=== PATIENT | male | born 1955 | race Two or more races ===

== ENCOUNTER 2024-09-02 11:04 | Inpatient (IN) ==
--- NOTE | 2024-09-02 11:18 | Emergency Department Note ---
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 He admits to cough and fevers off and on for the past 3 weeks. Has gotten worse over the past couple days. He admits to shortness of breath. He was unhooking a trailer and got chest pain but he notes its only present when he is coughing. Denies any belly pain, nausea, vomiting or diarrhea. No dysuria, urgency, or frequency. No other exacerbating or remitting factors. ADDITIONAL HISTORY OBTAINED: Per HPI Chronic Medical/Social Conditions Affecting Care: Per HPI PAST MEDICAL HISTORY:See Below PAST SURGICAL HISTORY:See Below FAMILY HISTORY:See Below SOCIAL HISTORY:See Below HOME MEDICATIONS:See Below ALLERGIES:See Below VITALS:See Below PHYSICAL EXAMINATION: GENERAL: Sitting up in bed, alert, with a productive cough EYE EXAM: normal conjunctiva. PERRL and EOM's grossly intact. OROPHARYNX: no exudate, no erythema, lips, buccal mucosa, and tongue normal and mucous membranes are moist NECK: supple, no nuchal rigidity, no adenopathy, non-tender LUNGS: Clear to auscultation. Normal chest wall mechanics HEART: no murmurs, S1 normal and S2 normal ABDOMEN: abdomen soft, non-tender, normo-active bowel sounds, no masses, no rebound or guarding. UPPER EXTREMITIES: upper extremities are grossly normal. LOWER EXTREMITIES: No pitting edema. NEURO EXAM: Normal sensorium-oriented person place and time, cranial nerves II- XII grossly intact, normal speech, no gross weakness of arms, no gross weakness of legs. MEDICAL DECISION MAKING: Patient is a 69-year-old male who presents to the ER for the above-stated complaint. IV was established and blood work was obtained. Labs show leukocytosis of 12.9 thousand. No significant anemia. INR unremarkable. BMP with mild hyponatremia at 134. LFTs bilirubin is unremarkable. Troponin was elevated at 130. Pro-Dave was normal. Viral panel was negative. Chest x-ray suggestive of pneumonia. Patient was given IV fluids. He was given oral Tylenol. Patient was given Rocephin and azithromycin. Patient received Cardizem prior to arrival and rate was fairly controlled while in the ER. Discussed with the case with the hospitalist for further evaluation management treatment. Consults/Care Managements Discussions: Per [facility] Triage Nursing notes reviewed. Limited review of prior medical records performed Vital Signs: reviewed and remarkable for no significant abnormalities Differential diagnosis: Differential diagnosis: Etiologies such as viral syndrome, otitis, pharyngitis, pneumonia, influenza, meningitis, urinary tract infection, sepsis, bacteremia, as well as others were entertained. ER treatment provided: See below Diagnostics interpreted by me include EKG and cardiac monitoring as listed below: -Cardiac Monitoring: An order was placed for continuous cardiac monitoring. The monitor shows a rate of 110 with atrial flutter rhythm. -ECG: Atrial flutter rate of 114 Left axis No PVCs QTc [address] wave changes -Laboratory studies:Interpreted by me as stated above in MDM and shown below. Imaging studies: Xrays: As interpreted by me: Portable AP upright 1 view of the chest shows bilateral lower lobe opacities CTs show: None Procedures: None Critical Care: None Past Med/Surg History Problem List (Updated 09/02/24 @ 17:20 by Martin Haddad DO) Leukocytosis (Acute) Pneumonia (Acute) Sepsis (Acute) Atrial flutter by electrocardiogram (Acute) CAP (community acquired pneumonia) NSTEMI, initial episode of care Rheumatoid arthritis in remission On methotrexate therapy BPH (benign prostatic hyperplasia) Social History Smoking Status: Former smoker Hx Alcohol Use: No Hx Substance Use: No Beliefs That Will Affect Care: None Current Living Situation: Family Other Information That Helps Us Care for You: No Feels Safe at Home: Yes Safety Concerns: Feels Safe At This Time Assistive Devices: Glasses Allergies Allergies Allergy/AdvReac Type Severity Reaction Status Date / Time No Known Allergies Allergy Verified 09/02/24 14:40 Home Meds Home Medications Medication Instructions Recorded Confirmed atorvastatin 40 mg tablet 40 mg PO PM 09/02/24 09/02/24 folic acid 1 mg tablet 1 mg PO DAILY 09/02/24 09/02/24 methotrexate sodium 2.5 mg tablet 15 mg PO WK 09/02/24 09/02/24 Results & Data (ED) Vital Signs Vital Signs - 24 hr 09/02/24 11:14 09/02/24 11:20 09/02/24 11:21 Temperature 39.6 C H 39.6 C H Temperature Source Oral Oral Pulse Rate 110 H 115 H Pulse Rate [Apical] 115 H Pulse Rhythm Regular Regular Pulse Strength Normal Respiratory Rate 20 20 20 Respiratory Effort / Characteristics Non-Labored Spontaneous Non-Labored Spontaneous Respiratory Depth Normal Normal Respiratory Pattern Regular Blood Pressure 121/78 Blood Pressure [Left Arm] 121/78 Blood Pressure Mean 92 Blood Pressure Mean [Left Arm] 92 Pulse Oximetry 92 93 93 Oxygen Delivery Method Room Air Room Air Room Air Sepsis Recent Fever Within 48 Hours Yes Sepsis New/Unexplained Change in Mental Status No Sepsis Action Taken by Nursing Physician Notified 09/02/24 11:30 09/02/24 12:23 Temperature Temperature Source Pulse Rate 116 H Pulse Rate [Apical] Pulse Rhythm Pulse Strength Respiratory Rate Respiratory Effort / Characteristics Respiratory Depth Respiratory Pattern Blood Pressure Blood Pressure [Left Arm] Blood Pressure Mean Blood Pressure Mean [Left Arm] Pulse Oximetry Oxygen Delivery Method Room Air Sepsis Recent Fever Within 48 Hours Sepsis New/Unexplained Change in Mental Status Sepsis Action Taken by Nursing Laboratory Data 09/02/24 11:15 09/02/24 11:51 Lab Results 09/02/24 09/02/24 09/02/24 Range/Units 11:15 11:30 11:51 WBC 12.99 H (4.8-10.8) K/ul RBC 4.82 (4.70-6.10) M/uL Hgb 15.2 (14.0-18.0) g/dl Hct 43.1 (42.0-52.0) % MCV 89.4 (80.0-100.0) fL MCH 31.5 (25.0-34.0) pg MCHC 35.3 (32.0-36.0) g/dL RDW Std Deviation 43.8 (36.4-46.3) fL RDW Coeff of Leeanne 13.3 (11.5-14.5) % Plt Count 236 (130-400) K/uL MPV 9.7 (9.4-12.4) fL Immature Gran % (Auto) 0.6 % Neut % (Auto) 78.8 % Lymph % (Auto) 10.2 % [place] % (Auto) 10.1 % Eos % (Auto) 0.0 % Baso % (Auto) 0.3 % Neut # (Auto) 10.24 H (1.40-6.50) K/uL Lymph # (Auto) 1.32 (1.20-3.40) K/uL [place] # (Auto) 1.31 H (0.11-0.59) K/uL Eos # (Auto) 0.00 (0.00-0.50) K/uL Baso # (Auto) 0.04 (0.00-0.20) K/uL Immature Gran # (Auto) 0.08 (0.01-0.20) K/uL PT 11.7 (9.0-12.0) Seconds INR 1.1 (0.9-1.1) APTT 28 (21-31) Seconds PTT Ratio 1.0 Sodium 134 L (136-145) mmol/L Potassium TNP 3.7 Chloride 102 (98-107) mmol/L Carbon Dioxide 24 (21-32) mmol/L Anion Gap 8 (3-11) BUN 11 (6-23) mg/dl Creatinine 0.97 (0.6-1.4) mg/dl Est Cr Clr Drug Dosing 87.6 ml/min eGFR 85.03 BUN/Creatinine Ratio 11.3 (10-20) Glucose 135 H (70-99(Fasting)) mg/dl Estimat Average Glucose 114 mg/dl Hemoglobin A1c 5.6 (4.5-5.6) % Lactate 1.6 (0.4-2.0) mmol/L Calcium 9.0 (8.6-10.3) mg/dl Total Bilirubin 1.2 H (0.2-1.0) mg/dl AST TNP 17 ALT 21 (7-52) U/L Alkaline Phosphatase 68 (34-104) U/L Troponin I High Sens 128.9 H* (0-20) pg/ml Total Protein 7.3 (6.0-8.3) gm/dl Albumin 4.1 (3.4-5.0) gm/dl Globulin 3.2 (2.5-4.0) gm/dl Albumin/Globulin Ratio 1.3 (0.9-2) Triglycerides 58 (0-150) mg/dl Cholesterol 107 (0-200) mg/dl LDL Cholesterol, Calc 51 mg/dl VLDL Cholesterol, Calc 12 (0-30) mg/dl HDL Cholesterol 44 mg/dl Cholesterol/HDL Ratio 2.4 (0-5) Lipase 13 (11-82) U/L Procalcitonin Cancelled 0.13 TSH 0.543 (0.300-4.500) uIu/ml Administered Medications Atorvastatin Calcium (Atorvastatin 40 Mg Tab) 40 mg PO QAM [facility] Stop: 10/02/24 13:29 Last Admin: 09/02/24 14:41 Dose: 40 mg Documented By: DELORES Heparin Sodium/Dextrose (Heparin Sodium/Dextrose) 25,000 units in 500 mls @ 31 mls/hr IV .Q16H8M [facility]; Protocol Stop: 10/02/24 14:29 Last Admin: 09/02/24 15:19 Dose: 1,550 units/hr, 31 mls/hr Documented By: DELORES Co-signed By: JEROME Diltiazem HCl 125 mg/ Dextrose 125 mls @ 5 mls/hr IV .Q24H [facility]; Protocol Stop: 10/02/24 16:44 Last Admin: 09/02/24 16:54 Dose: 5 mg/hr, 5 mls/hr Documented By: EVA Co-signed By: ZAC Metoprolol Tartrate (Metoprolol Tartrate 25 Mg Tab) 12.5 mg PO Q6 [facility] Stop: 10/02/24 17:59 Last Admin: 09/02/24 16:55 Dose: 12.5 mg Documented By: EVA Discontinued Medications Acetaminophen (Acetaminophen 325 Mg Tab) 650 mg PO NOW STA Stop: 09/02/24 11:32 Last Admin: 09/02/24 11:45 Dose: 650 mg Documented By: DELORES Aspirin (Aspirin 81 Mg Ectab) 81 mg PO NOW STA Stop: 09/02/24 13:16 Last Admin: 09/02/24 13:34 Dose: Not Given Documented By: DELORES Azithromycin (Azithromycin 250 Mg Tab) 500 mg PO NOW ONE Stop: 09/02/24 11:57 Last Admin: 09/02/24 12:26 Dose: 500 mg Documented By: DELORES Heparin Sodium (Porcine) (Heparin Sod (Porcine) 1000 Unit/Ml) 7,000 units IV NOW ONE Stop: 09/02/24 14:26 Last Admin: 09/02/24 15:19 Dose: 7,000 units Documented By: DELORES Co-signed By: JEROME Sodium Chloride (Nss) 1,000 mls @ 999 mls/hr IV .Q1H1M [facility] Stop: 09/02/24 13:15 Last Infusion: 09/02/24 13:02 Dose: Infused Documented By: Admin: 09/02/24 11:47 Dose: 999 mls/hr Documented By: Infusion: 09/02/24 11:47 Dose: Infused Documented By: Admin: 09/02/24 11:35 Dose: 999 mls/hr Documented By: DELORES Ceftriaxone Sodium (Rocephin) 2,000 mg in 50 mls @ 100 mls/hr IV NOW STA Stop: 09/02/24 12:00 Last Infusion: 09/02/24 12:10 Dose: Infused Documented By: Admin: 09/02/24 11:46 Dose: 100 mls/hr Documented By: DELORES Metoprolol Tartrate (Metoprolol Tartrate 1 Mg/Ml Vial) 5 mg IV NOW STA Stop: 09/02/24 13:12 Last Admin: 09/02/24 13:24 Dose: 5 mg Documented By: DELORES Potassium Chloride (Potassium Chloride Crtab 20 Meq Tabcr) 20 meq PO NOW STA Stop: 09/02/24 16:45 Last Admin: 09/02/24 16:54 Dose: 20 meq Documented By: [facility] Imaging Data Radiologist's Impression: Chest X-Ray 09/02/24 11:14 XR chest 1V portable CLINICAL HISTORY: Chest pain, nonspecific. COMPARISON STUDY: No previous studies for comparison. FINDINGS: The heart is moderately enlarged. There is pulmonary vascular congestion with possible mild pulmonary edema. Mild bibasilar opacities are greater on the right. There is no pneumothorax or pleural effusion. IMPRESSION: 1. Cardiomegaly. Pulmonary vascular congestion with suspected mild pulmonary edema. 2. Mild bibasilar opacities, greater on the right. The findings could reflect an infectious process or atelectasis. Radiographic follow-up to ensure resolution is recommended. ACT 112: Negative or not required by law. Electronically signed by: Luis Daniel Enamorado M.D. 09/02/2024 11:43 AM Discharge Plan Visit Data Chief Complaint: Cardiac Assessment Stated Complaint: CARDIAC ASSESSMENT ED Provider: Haddad,Martin M Discharge Problem: Sepsis, Pneumonia, Atrial flutter by electrocardiogram, Leukocytosis Patient Disposition: Admitted As Inpatient Discharge Instructions Interventions: ED Discharge Assessment Last Done: 09/02/24 15:11 Discharge Problem: Sepsis Qualifiers: Sepsis type: sepsis due to unspecified organism Sepsis acute organ dysfunction status: unspecified Qualified Code(s): A41.9 - Sepsis, unspecified organism Pneumonia Qualifiers: Pneumonia type: due to unspecified organism Laterality: unspecified laterality Lung location: unspecified part of lung Qualified Code(s): J18.9 - Pneumonia, unspecified organism Leukocytosis Qualifiers: Leukocytosis type: unspecified Qualified Code(s): D72.829 - Elevated white blood cell count, unspecified
[2024-09-02 11:30] LABS: Basophils # (auto) 0.04 K/uL (0.00-0.20); Basophils % (auto) 0.3 %; Hematocrit (blood only) 43.1 % (42.0-52.0); Hemoglobin 15.2 g/dl (14.0-18.0); Immature Granulocytes # (auto) 0.08 K/uL (0.01-0.20); Immature Granulocytes % (auto) 0.6 %; Lymphocytes # (auto) 1.32 K/uL (1.20-3.40); Lymphocytes % (auto) 10.2 %; Mean Corpuscular Hemoglobin 31.5 pg (25.0-34.0); Mean Corpuscular Hgb Conc 35.3 g/dL (32.0-36.0); Mean Corpuscular Volume 89.4 fL (80.0-100.0); Mean Platelet Volume 9.7 fL (9.4-12.4); Monocytes # (auto) 1.31 K/uL (0.11-0.59); Monocytes % (auto) 10.1 %; Neutrophils # (auto) 10.24 K/uL (1.40-6.50); Neutrophils % (auto) 78.8 %; Platelet Count 236 K/uL (130-400); RDW Coefficient of Variation 13.3 % (11.5-14.5); RDW Standard Deviation 43.8 fL (36.4-46.3); Red Blood Count 4.82 M/uL (4.70-6.10); White Blood Count 12.99 K/ul (4.8-10.8)
[2024-09-02] MEDS: SODIUM CHLORIDE 0.9% 1,000 ML IV SCH (11:35)
[2024-09-02] MEDS: ACETAMINOPHEN 325 MG TAB PO STA (11:45)
[2024-09-02] MEDS: cefTRIAXone SODIUM 2,000 MG/50 ML BAG IV STA (11:46)
--- NOTE | 2024-09-02 11:46 | XRay Report ---
XR chest 1V portable CLINICAL HISTORY: Chest pain, nonspecific. COMPARISON STUDY: No previous studies for comparison. FINDINGS: The heart is moderately enlarged. There is pulmonary vascular congestion with possible mild pulmonary edema. Mild bibasilar opacities are greater on the right. There is no pneumothorax or pleu ral effusion. IMPRESSION: 1. Cardiomegaly. Pulmonary vascular congestion with suspected mild pulmonary edema. 2. Mild bibasilar opacities, greater on the right. The findings could reflect an infectious process o r atelectasis. Radiographic follow-up to ensure resolution is recommended. ACT 112: Negative or not required by law. Electronically signed by: Luis Daniel Enamorado M.D. 09/02/2024 11:43 AM
[2024-09-02 11:48] LABS: Alanine Aminotransferase 21 U/L (7-52); Albumin Globulin Ratio 1.3 (0.9-2); Albumin Level 4.1 gm/dl (3.4-5.0); Alkaline Phosphatase 68 U/L (34-104); Anion Gap 8 (3-11); BUN Creatinine Ratio 11.3 (10-20); Bilirubin,Total 1.2 mg/dl (0.2-1.0); Blood Urea Nitrogen 11 mg/dl (6-23); Carbon Dioxide 24 mmol/L (21-32); Chloride 102 mmol/L (98-107); Creatinine Clr Calc Pharmacy 87.6 ml/min; Globulin 3.2 gm/dl (2.5-4.0); Glucose 135 mg/dl (70-99(Fasting)); Lipase 13 U/L (11-82); Sodium 134 mmol/L (136-145); Total Protein 7.3 gm/dl (6.0-8.3)
[2024-09-02 11:55] LABS: Troponin I High Sensitivity 128.9 pg/ml (0-20)
[2024-09-02] MEDS: AZITHROMYCIN 250 MG TAB PO ONE (12:26)
[2024-09-02 12:33] LABS: Adenovirus PCR Not Detected (NotDetected); Bordetella parapertussis PCR Not Detected (NotDetected); Bordetella pertussis PCR Not Detected (NotDetected); Chlamydia pneumoniae PCR Not Detected (NotDetected); Coronavirus 229E PCR Not Detected (NotDetected); Coronavirus CoV-2 (COVID19)PCR Not Detected (NotDetected); Coronavirus HKU1 PCR Not Detected (NotDetected); Coronavirus NL63 PCR Not Detected (NotDetected); Coronavirus OC43PCR Not Detected (NotDetected); Human Metapneumovirus PCR Not Detected (NotDetected); Influenza A PCR Not Detected (NotDetected); Influenza B PCR Not Detected (NotDetected); Mycoplasma pneumoniae PCR Not Detected (NotDetected); Parainfluenza Virus 1 PCR Not Detected (NotDetected); Parainfluenza Virus 2 PCR Not Detected (NotDetected); Parainfluenza Virus 3 PCR Not Detected (NotDetected); Parainfluenza Virus 4 PCR Not Detected (NotDetected); Respiratory Syncytial VirusPCR Not Detected (NotDetected); Rhinovirus/Enterovirus PCR Not Detected (NotDetected)
[2024-09-02 12:59] LABS: Potassium 3.7 mmol/L (3.5-5.1)
[2024-09-02 13:09] LABS: Chol HDL Ratio 2.4 (0-5)
[2024-09-02 13:24] LABS: Thyroid Stimulating Hormone 0.543 uIu/ml (0.300-4.500)
[2024-09-02] MEDS: METOPROLOL TARTRATE 1 MG/ML VIAL IV STA (13:24)
--- NOTE | 2024-09-02 13:29 | History & Physical Report ---
Date of Service September 02, 2024 Assessment & Plan (1) Sepsis: Plan: -qualified by tachycardia and leukocytosis Plan: -order blood cultures x2, sputum culture -continue abx for now, low threshold to broaden if necessary -check MRSA swab (2) CAP (community acquired pneumonia): Plan: -clinical diagnosis based on fever and cough, albeit unproductive -procal is negative, viral workup is negative -differential includes HF exaccerbation (possible but does not appear severely fluid overloaded), methotrexate induced pneumonitis (possible), less likely PE (given imaging findings), sarcoidosis (possible but less likely) Plan: -check BNP, f/u next troponin, consult rheumatology given concern for methotrexate induced pneumonitis if no improvement with abx -stop fluids for now given does not appear volume down -continue azithromycin/ceftriaxone x5-7 days -check legionella antigen (3) NSTEMI, initial episode of care: Plan: -likely in setting of new onset atrial flutter, likely 3 weeks ago -not on anticoagulation, [id number] score of 3 meaning anticoagulation is indicated Plan: -start eliquis 5mg bid (4) Atrial flutter by electrocardiogram: Plan: -new onset, likely 3 weeks ago when chest pressure began -hemodynamically stable Plan: -cardiology consult, appreciate recs -check A1c, lipids, TSH for risk strat -give 5mg IV metoprolol now, start 12.5 mg q6hrs scheduled PO loppressor for rate control (5) Rheumatoid arthritis in remission: Plan: -on methotrexate -joint pain well controlled however given imaging findings and fever lower on differential but possible would be methotrexate induced pneumonitis Plan: -cessation systems outreach specialist clinical response, if not feeling better over next few days consult rheumatology for consideration of steroids and further workup -hold methotrexate for now (6) BPH (benign prostatic hyperplasia): Plan: -not taking prescribed flomax (7) On methotrexate therapy: Plan: -see above Plan Feeding/fluids: heart healthy Analgesia: none Sedation: none Thromboprophylaxis: eliquis Head up position: 30 Ulcer prophylaxis: none Glycemic control: none Spontaneous breathing trial: na Bowel care: miralax Indwelling catheter removal: none Deescalation of antibiotics: day 1 azithro/ceftriaxone Admission and Anticipated Discharge Date Anticipated date of discharge: 09/04/24 History of Present Illness Chief Complaint: cough Primary Care Provider: NO PCP 69-year-old male with no medical history at current institution, sees doctors in [place], medical history of rheumatoid arthritis hyperlipidemia and hypertension, who presents for cough and some pressure in the chest. He states the pressure in the chest began 3 weeks ago. He is a tester/lift trucker. Cough began 3 days ago. He only takes methotrexate at home along with some over the counter supplements. He states this is never happened before. 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 Endorses poor diet. Does state he has some shortness of breath, pressure in chest, but denies other symptoms. Denies tobacco use, drug use, alcohol use. Former tobacco user. Allergies Allergy/AdvReac Type Severity Reaction Status Date / Time No Known Allergies Allergy Verified 09/02/24 13:53 Home Medications Medication Instructions Recorded Confirmed Type methotrexate sodium 2.5 mg tablet mg 09/02/24 History Past Med/Surg History Problem List (Updated 09/02/24 @ 13:58 by Nilesh Coates MD) Sepsis Atrial flutter by electrocardiogram CAP (community acquired pneumonia) NSTEMI, initial episode of care Rheumatoid arthritis in remission On methotrexate therapy BPH (benign prostatic hyperplasia) Social History Smoking Status: Former smoker Feels Safe at Home: Yes Review of Systems Review of Systems: CONSTITUTIONAL: fevers, shakes EYES: Patient denies any visual symptoms. EARS, NOSE, AND THROAT: No difficulties with hearing. No symptoms of rhinitis or sore throat. CARDIOVASCULAR: chest tightness RESPIRATORY: No dyspnea on exertion, no wheezing or cough. GI: No nausea, vomiting, diarrhea, constipation, abdominal pain, hematochezia or melena. : No urinary hesitancy or dribbling. No nocturia or urinary frequency. No abnormal urethral discharge. MUSCULOSKELETAL: chronic arthralgias NEUROLOGIC: No chronic headaches, no seizures. Patient denies numbness, tingling or weakness. PSYCHIATRIC: Patient denies problems with mood disturbance. No problems with anxiety. ENDOCRINE: No excessive urination or excessive thirst. DERMATOLOGIC: Patient denies any rashes or skin changes. Physical Exam Physical Exam: Gen: A&O 3 NAD HEENT: NCAT, EOMI, not icteric. External ears normal. No rhinorrhea. Moist mucous membranes. Neck: Supple, full range of motion, no observable masses, No meningeal sign. Slightly elevated JVP Lungs: No Respiratory distress. CV: tachycardic, regular Abdomen: Soft, nondistended, No rebound tenderness. MSK: trace pitting edema in legs bilaterally Skin: No rashes, petechiae, lesions. Normal color per patient. Neuro: Normal Gait, Grossly intact. Psych: Appropriate for situation. Results & Data Results & Data Vital Signs (Past 12 Hours) Vital Signs Temp Pulse Pulse Resp BP BP Pulse Ox 09/02/24 12:23 116 H 09/02/24 11:30 09/02/24 11:21 39.6 C H 115 H 20 121/78 93 09/02/24 11:20 115 H 20 93 09/02/24 11:14 39.6 C H 110 H 20 121/78 92 O2 Del Method 09/02/24 12:23 09/02/24 11:30 Room Air 09/02/24 11:21 Room Air 09/02/24 11:20 Room Air 09/02/24 11:14 Room Air Laboratory Results Laboratory Results WBC 12.99 K/ul (4.8-10.8) H 09/02/24 11:15 RBC 4.82 M/uL (4.70-6.10) 09/02/24 11:15 Hgb 15.2 g/dl (14.0-18.0) 09/02/24 11:15 Hct 43.1 % (42.0-52.0) 09/02/24 11:15 MCV 89.4 fL (80.0-100.0) 09/02/24 11:15 MCH 31.5 pg (25.0-34.0) 09/02/24 11:15 MCHC 35.3 g/dL (32.0-36.0) 09/02/24 11:15 RDW Std Deviation 43.8 fL (36.4-46.3) 09/02/24 11:15 RDW Coeff of Leeanne 13.3 % (11.5-14.5) 09/02/24 11:15 Plt Count 236 K/uL (130-400) 09/02/24 11:15 MPV 9.7 fL (9.4-12.4) 09/02/24 11:15 Immature Gran % (Auto) 0.6 % 09/02/24 11:15 Neut % (Auto) 78.8 % 09/02/24 11:15 Lymph % (Auto) 10.2 % 09/02/24 11:15 Story % (Auto) 10.1 % 09/02/24 11:15 Eos % (Auto) 0.0 % 09/02/24 11:15 Baso % (Auto) 0.3 % 09/02/24 11:15 Neut # (Auto) 10.24 K/uL (1.40-6.50) H 09/02/24 11:15 Lymph # (Auto) 1.32 K/uL (1.20-3.40) 09/02/24 11:15 [place] # (Auto) 1.31 K/uL (0.11-0.59) H 09/02/24 11:15 Eos # (Auto) 0.00 K/uL (0.00-0.50) 09/02/24 11:15 Baso # (Auto) 0.04 K/uL (0.00-0.20) 09/02/24 11:15 Immature Gran # (Auto) 0.08 K/uL (0.01-0.20) 09/02/24 11:15 Sodium 134 mmol/L (136-145) L 09/02/24 11:15 Potassium 3.7 mmol/L (3.5-5.1) 09/02/24 11:51 Chloride 102 mmol/L (98-107) 09/02/24 11:15 Carbon Dioxide 24 mmol/L (21-32) 09/02/24 11:15 Anion Gap 8 (3-11) 09/02/24 11:15 BUN 11 mg/dl (6-23) 09/02/24 11:15 Creatinine 0.97 mg/dl (0.6-1.4) 09/02/24 11:15 Est Cr Clr Drug Dosing 87.6 ml/min 09/02/24 11:15 eGFR 85.03 09/02/24 11:15 BUN/Creatinine Ratio 11.3 (10-20) 09/02/24 11:15 Glucose 135 mg/dl (70-99(Fasting)) H 09/02/24 11:15 Lactate 1.6 mmol/L (0.4-2.0) 09/02/24 11:30 Calcium 9.0 mg/dl (8.6-10.3) 09/02/24 11:15 Total Bilirubin 1.2 mg/dl (0.2-1.0) H 09/02/24 11:15 AST 17 U/L (13-39) 09/02/24 11:51 ALT 21 U/L (7-52) 09/02/24 11:15 Alkaline Phosphatase 68 U/L (34-104) 09/02/24 11:15 Troponin I High Sens 128.9 pg/ml (0-20) H* 09/02/24 11:15 Total Protein 7.3 gm/dl (6.0-8.3) 09/02/24 11:15 Albumin 4.1 gm/dl (3.4-5.0) 09/02/24 11:15 Globulin 3.2 gm/dl (2.5-4.0) 09/02/24 11:15 Albumin/Globulin Ratio 1.3 (0.9-2) 09/02/24 11:15 Triglycerides 58 mg/dl (0-150) 09/02/24 11:51 Cholesterol 107 mg/dl (0-200) 09/02/24 11:51 LDL Cholesterol, Calc 51 mg/dl 09/02/24 11:51 VLDL Cholesterol, Calc 12 mg/dl (0-30) 09/02/24 11:51 HDL Cholesterol 44 mg/dl 09/02/24 11:51 Cholesterol/HDL Ratio 2.4 (0-5) 09/02/24 11:51 Lipase 13 U/L (11-82) 09/02/24 11:15 Procalcitonin 0.13 ng/ml (0-0.5) 09/02/24 11:51 TSH 0.543 uIu/ml (0.300-4.500) 09/02/24 11:51 Adenovirus (PCR) Not Detected (NotDetected) 09/02/24 Unknown B. pertussis DNA (PCR) Not Detected (NotDetected) 09/02/24 Unknown B.parapertussis DNA PCR Not Detected (NotDetected) 09/02/24 Unknown C. pneumoniae DNA (PCR) Not Detected (NotDetected) 09/02/24 Unknown Coronavirus OC43 (PCR) Not Detected (NotDetected) 09/02/24 Unknown Coronavirus HKU1 (PCR) Not Detected (NotDetected) 09/02/24 Unknown Coronavirus 229E (PCR) Not Detected (NotDetected) 09/02/24 Unknown SARS-CoV-2 (PCR) Not Detected (NotDetected) 09/02/24 Unknown Coronavirus NL63 (PCR) Not Detected (NotDetected) 09/02/24 Unknown Human Metapneumovir PCR Not Detected (NotDetected) 09/02/24 Unknown Influenza Type A (PCR) Not Detected (NotDetected) 09/02/24 Unknown Influenza Type B (PCR) Not Detected (NotDetected) 09/02/24 Unknown M. pneumoniae (PCR) Not Detected (NotDetected) 09/02/24 Unknown Parainfluenza 1 (PCR) Not Detected (NotDetected) 09/02/24 Unknown Parainfluenza 2 (PCR) Not Detected (NotDetected) 09/02/24 Unknown Parainfluenza 3 (PCR) Not Detected (NotDetected) 09/02/24 Unknown Parainfluenza 4 (PCR) Not Detected (NotDetected) 09/02/24 Unknown RSV (PCR) Not Detected (NotDetected) 09/02/24 Unknown Entero/Rhino (PCR) Not Detected (NotDetected) 09/02/24 Unknown Impressions Chest X-Ray 09/02/24 11:14 XR chest 1V portable CLINICAL HISTORY: Chest pain, nonspecific. COMPARISON STUDY: No previous studies for comparison. FINDINGS: The heart is moderately enlarged. There is pulmonary vascular congestion with possible mild pulmonary edema. Mild bibasilar opacities are greater on the right. There is no pneumothorax or pleural effusion. IMPRESSION: 1. Cardiomegaly. Pulmonary vascular congestion with suspected mild pulmonary edema. 2. Mild bibasilar opacities, greater on the right. The findings could reflect an infectious process or atelectasis. Radiographic follow-up to ensure resolution is recommended. ACT 112: Negative or not required by law. Electronically signed by: Luis Daniel Enamorado M.D. 09/02/2024 11:43 AM Code Status & VTE Plan Code Status full code VTE Prophylaxis Plan VTE Prophylaxis will be ordered: Yes (1) Sepsis Sepsis acute organ dysfunction status: unspecified Sepsis type: sepsis due to unspecified organism Qualified Code(s): A41.9 - Sepsis, unspecified organism (2) CAP (community acquired pneumonia) Laterality: right Lung location: lower lobe of lung Qualified Code(s): J18.9 - Pneumonia, unspecified organism (6) BPH (benign prostatic hyperplasia) Lower urinary tract symptom presence: symptoms present Lower urinary tract symptom detail: urinary frequency Qualified Code(s): N40.1 - Benign prostatic hyperplasia with lower urinary tract symptoms; R35.0 - Frequency of micturition
[2024-09-02] MEDS: ASPIRIN 81 MG ECTAB PO STA (13:34)
[2024-09-02] MEDS ORDERED: Heparin IV Adult Wt-Based Standard w/ INITIAL Bolus Protocol IV STA (14:10)
[2024-09-02 14:32] LABS: Estimated Average Glucose 114 mg/dl; Hemoglobin A1C 5.6 % (4.5-5.6)
[2024-09-02] MEDS: ATORVASTATIN 40 MG TAB PO SCH (14:41)
[2024-09-02] MEDS: HEPARIN SODIUM/DEXTROSE 25,000 UNITS/500 ML BAG IV SCH (15:19)
[2024-09-02] MEDS: HEPARIN SOD (PORCINE) 1000 UNIT/ML IV ONE (15:19)
--- NOTE | 2024-09-02 15:20 | Electrocardiogram Report ---
Test Reason : Blood Pressure : */* mmHG Vent. Rate : 114 BPM Atrial Rate : 114 BPM P-R Int : 186 ms QRS Dur : 120 ms QT Int : 292 ms P-R-T Axes : * -61 97 degrees QTcB Int : 402 ms Probable Atrial flutter Left anterior fascicular block Left ventricular hypertrophy with QRS widening ( R in aVL ) Nonspecific ST and T wave abnormality Abnormal ECG No previous ECGs available Confirmed by Isidoro Aggarwal ([id number]) on 09/02/2024 3:19:56 PM Referred By: Confirmed By: Isidoro Aggarwal
[2024-09-02 15:54] LABS: INR 1.1 (0.9-1.1); Partial Thromboplastin Time 28 Seconds (21-31); Prothrombin Time 11.7 Seconds (9.0-12.0)
[2024-09-02] MEDS ORDERED: ONDANSETRON INJ 2 MG/ML 2 ML VIAL IV PRN (15:54)
[2024-09-02] MEDS ORDERED: POLYETHYLENE (MIRALAX) 17 GM PACK PO PRN (15:54)
[2024-09-02] MEDS ORDERED: ENOXAPARIN INJ 40 MG/0.4 ML SYR SQ SCH (15:54)
[2024-09-02] MEDS ORDERED: STAT IV Infusion **Titration per Protocol STA (16:39)
--- NOTE | 2024-09-02 16:46 | Cardiology Consultation ---
Date of Consultation September 02, 2024 Assessment & Plan (1) CAP (community acquired pneumonia): (2) NSTEMI, initial episode of care: (3) Atrial flutter by electrocardiogram: Echocardiogram reveals borderline to mild diffuse left ventricular hypokinesis LVEF in the range of 45-50%. Patient is felt poorly for the last 3 weeks. Suspect he has developed underlying pneumonia and superimposed atrial fibrillation/flutter with left ventricular systolic dysfunction and heart failure that may be tachycardia induced. BNP screening minimally elevated 239 PG per mL. -Agree with initiation of beta-osvaldo, Toprol tartrate 12.5 mg p.o. every 6 hours -Add diltiazem infusion -Initially Eliquis was considered for stroke prophylaxis, but given his mild increase in troponin would recommend proceeding with unfractionated heparin until it is determined if invasive procedure indicated during this hospital s shanice. Lipid panel already obtained, LDL cholesterol 51 mg/dL. Continue current treatment with atorvastatin. History of Present Illness Attending Physician: Nilesh Coates MD History of Present Illness Alex Layton is a 69 year old male seen in cardiology consultation per the request of Dr Coates for the evaluation of atrial fibrillation / flutter, and elevation in the HS troponin level. The patient is a long distance fork truck operator. He is originally from [place], but moved to [place] 20 year ago. He describes no past history of known heart disease. He has had a 3-week history of progressive cough and associated shortness of breath. EKG on arrival to the emergency department on 09/02/2024 at 11:10 AM interpreted dependently revealed atrial fibrillation versus flutter at 114 bpm with left anterior fascicular block and nonspecific repolarization abnormalities. Past medical history is notable for rheumatoid arthritis and is on methotrexate. He also has a history of dyslipidemia and is on atorvastatin 40 mg daily. Allergies Allergy/AdvReac Type Severity Reaction Status Date / Time No Known Allergies Allergy Verified 09/02/24 14:40 Home Medications Medication Instructions Recorded Confirmed Type atorvastatin 40 mg tablet 40 mg PO PM 09/02/24 09/02/24 History folic acid 1 mg tablet 1 mg PO DAILY 09/02/24 09/02/24 History methotrexate sodium 2.5 mg tablet 15 mg PO WK 09/02/24 09/02/24 History Patient History Social History Smoking Status: Former smoker Hx Alcohol Use: No Hx Substance Use: No Beliefs That Will Affect Care: None Current Living Situation: Family Other Information That Helps Us Care for You: No Feels Safe at Home: Yes Safety Concerns: Feels Safe At This Time Assistive Devices: Glasses Review of Systems Review of Systems: All systems reviewed & are unremarkable except as noted in HPI & below Physical Exam Physical Exam: Temp Pulse Resp BP Pulse Ox O2 Del Method O2 Flow Rate 36.8 C 126 H 19 157/79 H 96 Nasal Cannula 2 09/02/24 15:54 09/02/24 16:34 09/02/24 14:40 09/02/24 15:54 09/02/24 15:54 09/02/24 15:55 09/02/24 15:55 General: no acute distress and stated age Eyes: conjunctiva are pink and non-injected, sclera clear Neck: normal jugular venous pulse, no hepatojugular reflux Chest: normal shape and normal respiratory effort Lungs: Coarse breath sounds noted throughout the mid lung dominguez Cardiac Exam: -Irregular rhythm, tachycardic, no murmurs Abdomen: abdomen soft, non-tender, no abnormal masses and no hepatosplenomegaly Musculoskeletal: no gait disturbance, no weakness Extremities: no edema and no cyanosis Neuro:awake, conversant, follows commands, no focal motor deficits Psych: appropriate affect and insight. Results & Data Vital Signs (Past 12 Hours) Vital Signs Temp Pulse Pulse Resp BP BP Pulse Ox 09/02/24 15:55 09/02/24 15:10 102 H 122/88 09/02/24 14:40 105 H 19 125/86 93 09/02/24 13:24 128 H 105/72 09/02/24 13:21 36.9 C 125 H 18 105/72 99 09/02/24 12:23 116 H 09/02/24 11:30 09/02/24 11:21 39.6 C H 115 H 20 121/78 93 09/02/24 11:20 115 H 20 93 09/02/24 11:14 39.6 C H 110 H 20 121/78 92 O2 Del Method O2 Flow Rate 09/02/24 15:55 Nasal Cannula 2 09/02/24 15:10 09/02/24 14:40 Nasal Cannula 2 09/02/24 13:24 09/02/24 13:21 Room Air 09/02/24 12:23 09/02/24 11:30 Room Air 09/02/24 11:21 Room Air 09/02/24 11:20 Room Air 09/02/24 11:14 Room Air Laboratory Results Cardiac Enzymes 09/02/24 09/02/24 09/02/24 Range/Units 11:15 11:51 13:10 AST TNP 17 Troponin I High Sens 128.9 H* 139.1 H* (0-20) pg/ml B-Natriuretic Peptide 239 H (0-100) pg/ml Coagulation 09/02/24 09/02/24 Range/Units 11:15 13:10 PT 11.7 (9.0-12.0) Seconds APTT 28 (21-31) Seconds B-Natriuretic Peptide 239 H (0-100) pg/ml Lipids 09/02/24 Range/Units 11:51 Triglycerides 58 (0-150) mg/dl Cholesterol 107 (0-200) mg/dl HDL Cholesterol 44 mg/dl Cholesterol/HDL Ratio 2.4 (0-5) CBC 09/02/24 Range/Units 11:15 WBC 12.99 H (4.8-10.8) K/ul RBC 4.82 (4.70-6.10) M/uL Hgb 15.2 (14.0-18.0) g/dl Hct 43.1 (42.0-52.0) % Plt Count 236 (130-400) K/uL Neut # (Auto) 10.24 H (1.40-6.50) K/uL Lymph # (Auto) 1.32 (1.20-3.40) K/uL [place] # (Auto) 1.31 H (0.11-0.59) K/uL Eos # (Auto) 0.00 (0.00-0.50) K/uL Baso # (Auto) 0.04 (0.00-0.20) K/uL Comprehensive Metabolic Panel 09/02/24 09/02/24 Range/Units 11:15 11:51 Sodium 134 L (136-145) mmol/L Potassium TNP 3.7 Chloride 102 (98-107) mmol/L Carbon Dioxide 24 (21-32) mmol/L BUN 11 (6-23) mg/dl Creatinine 0.97 (0.6-1.4) mg/dl Glucose 135 H (70-99(Fasting)) mg/dl Calcium 9.0 (8.6-10.3) mg/dl AST TNP 17 ALT 21 (7-52) U/L Alkaline Phosphatase 68 (34-104) U/L Total Protein 7.3 (6.0-8.3) gm/dl Albumin 4.1 (3.4-5.0) gm/dl Intake and Output 09/02/24 09/02/24 09/02/24 06:59 14:59 22:59 Intake Total 1249.8 / 1249.8 Balance 1249.8 / 1249.8 Intake: IV 1249.8 / 1249.8 Sodium Chloride 0.9% 1,000 ml @ 1199.8 / 1199.8 999 mls/hr IV .[id number] [facility] Rx#: [id number] cefTRIAXone SODIUM 2,000 mg In 50 / 50 50 ml @ 100 mls/hr IV NOW [facility] Rx#:[id number] Other: Weight 103 kg 104.9 kg Weight Measurement Method Built in [facility] Built in [facility] Patient Weight 09/03/24 06:59 Weight 104.9 kg Diagnostic Findings Portable chest x-ray performed in the emergency department revealed enlargement of the cardiac silhouette and suggestion of pulmonary vascular congestion Blood cultures x 2 obtained Transthoracic echocardiogram obtained with patient in atrial fibrillation/flutter with rapid ventricular response Mild concentric left ventricular hypertrophy is present Mild global left ventricular hypokinesis LVEF in the range of 45 -50%, mild MR, mild TR, the pulmonary systolic pressure estimated be 52 mmHg (mild to moderately elevated). No previous studies available for comparison. Viral respiratory panel negative. (1) CAP (community acquired pneumonia) Laterality: right Lung location: lower lobe of lung Qualified Code(s): J18.9 - Pneumonia, unspecified organism
[2024-09-02] MEDS: dilTIAZem HCL 125 MG in DEXTROSE 5% 100 ML IV SCH (16:54)
[2024-09-02] MEDS: POTASSIUM CHLORIDE CRTAB 20 MEQ TABCR PO STA (16:54)
[2024-09-02] MEDS: METOPROLOL TARTRATE 25 MG TAB PO SCH (16:55)
[2024-09-02] MEDS: ACETAMINOPHEN 325 MG TAB PO PRN (20:31)
[2024-09-02] MEDS ORDERED: APIXABAN 5 MG TABLET PO SCH (21:00)
[2024-09-02] MEDS: FUROSEMIDE INJ 20 MG/2 ML VIAL IV ONE (21:24)
[2024-09-02 21:53] LABS: ANTI-Xa, UFH(UnfractionatedHep 0.28 IU/ml (0.3-0.7)
--- NOTE | 2024-09-03 01:15 | CT Scan Report ---
Exam(s): CT HEAD Without Contrast EXAM: CT Head Without Intravenous Contrast CLINICAL HISTORY: AMS. TECHNIQUE: Axial computed tomography images of the head/brain without intravenous contrast. CTDI is 61 mGy and DLP is 1098 mGy-cm. Automated exposure control was utilized for the study. A dose lowering technique was utilized adhering to the principles of ALARA. COMPARISON: No relevant prior studies available. FINDINGS: Brain: No intracranial hemorrhage, mass-effect or midline shift. No abnormal extra axial fluid. No evidence of acute infarct. Mild periventricular white matter hypodensities are most consistent with chronic microangiopathy. Ventricles: Unremarkable. No ventriculomegaly. Bones/joints: Unremarkable. No acute fracture. Soft tissues: Unremarkable. Sinuses: Unremarkable as visualized. No acute sinusitis. Mastoid air cells: Unremarkable as visualized. No mastoid effusion. IMPRESSION: No acute intracranial finding. Electronically signed by: Elizabeth Garcia MD 09/03/24 01:14 AM
[2024-09-03 06:48] LABS: Basophils # (auto) 0.03 K/uL (0.00-0.20); Basophils % (auto) 0.3 %; Eosinophils # (auto) 0.01 K/uL (0.00-0.50); Eosinophils % (auto) 0.1 %; Hemoglobin 14.2 g/dl (14.0-18.0); Immature Granulocytes # (auto) 0.05 K/uL (0.01-0.20); Immature Granulocytes % (auto) 0.5 %; Lymphocytes # (auto) 1.99 K/uL (1.20-3.40); Lymphocytes % (auto) 18.3 %; Mean Corpuscular Hemoglobin 31.3 pg (25.0-34.0); Mean Corpuscular Hgb Conc 34.6 g/dL (32.0-36.0); Mean Corpuscular Volume 90.3 fL (80.0-100.0); Mean Platelet Volume 9.3 fL (9.4-12.4); Monocytes # (auto) 0.88 K/uL (0.11-0.59); Monocytes % (auto) 8.1 %; Neutrophils # (auto) 7.92 K/uL (1.40-6.50); Neutrophils % (auto) 72.7 %; Platelet Count 184 K/uL (130-400); RDW Coefficient of Variation 13.8 % (11.5-14.5); RDW Standard Deviation 45.8 fL (36.4-46.3); Red Blood Count 4.54 M/uL (4.70-6.10); White Blood Count 10.88 K/ul (4.8-10.8)
[2024-09-03 07:12] LABS: Albumin Globulin Ratio 1.2 (0.9-2); Albumin Level 3.6 gm/dl (3.4-5.0); BUN Creatinine Ratio 14.8 (10-20); Calcium 8.4 mg/dl (8.6-10.3); Creatinine Clr Calc Pharmacy 97.1 ml/min; Globulin 2.9 gm/dl (2.5-4.0); Magnesium 1.8 mg/dl (1.7-2.4); Potassium 3.7 mmol/L (3.5-5.1); Total Protein 6.5 gm/dl (6.0-8.3)
[2024-09-03 07:17] LABS: Partial Thromboplastin Ratio 1.5; Partial Thromboplastin Time 40 Seconds (21-31)
[2024-09-03] MEDS: AZITHROMYCIN 250 MG TAB PO SCH (08:41)
[2024-09-03] MEDS: ASPIRIN 81 MG ECTAB PO SCH (08:41)
[2024-09-03 09:48] LABS: ANTI-Xa, UFH(UnfractionatedHep 0.25 IU/ml (0.3-0.7)
[2024-09-03] MEDS: cefTRIAXone SODIUM 2,000 MG/50 ML BAG IV SCH (12:07)
--- NOTE | 2024-09-03 12:17 | Cardiology Progress Note ---
Date of Service September 03, 2024 Assessment & Plan (1) CAP (community acquired pneumonia): (2) NSTEMI, initial episode of care: (3) Atrial flutter by electrocardiogram: Plan: Echocardiogram reveals borderline to mild diffuse left ventricular hypokinesis LVEF in the range of 45-50%. Patient is felt poorly for the last 3 weeks. Suspect he has developed underlying pneumonia and superimposed atrial fibrillation/flutter with left ventricular systolic dysfunction and heart failure that may be tachycardia induced. BNP screening minimally elevated 239 PG per mL. -Stop IV diltiazem -Change metoprolol to succinate at 50 mg by mouth two times per day -Initially Eliquis was considered for stroke prophylaxis, but given his mild increase in troponin would recommend proceeding with unfractionated heparin until it is determined if invasive procedure indicated during this hospital stay. Lipid panel already obtained, LDL cholesterol 51 mg/dL. Continue current treatment with atorvastatin. Admission and Anticipated Discharge Date Admission Date: September 02, 2024 Subjective Patient seen in follow up. Notes ongoing generalized weakness and shortness of breath with exertion. No orthopnea. Telemetry reveals ongoing AFL at 109 bpm. Physical Exam Physical Exam: Temp Pulse Resp BP Pulse Ox O2 Del Method O2 Flow Rate 37.9 C H 102 H 18 121/72 90 Room Air 2 09/03/24 11:47 09/03/24 11:47 09/03/24 11:47 09/03/24 11:47 09/03/24 11:47 09/03/24 11:47 09/03/24 08:00 General: no acute distress and stated age Eyes: conjunctiva are pink and non-injected, sclera clear Neck: normal jugular venous pulse, no hepatojugular reflux Chest: normal shape and normal respiratory effort Lungs: Coarse breath sounds noted throughout the mid lung dominguez Cardiac Exam: -Irregular rhythm, tachycardic, no murmurs Abdomen: abdomen soft, non-tender, no abnormal masses and no hepatosplenomegaly Musculoskeletal: no gait disturbance, no weakness Extremities: no edema and no cyanosis Neuro:awake, conversant, follows commands, no focal motor deficits Psych: appropriate affect and insight. Results & Data Vital Signs (Past 12 Hours) Vital Signs Temp Pulse Pulse Resp BP Pulse Ox O2 Del Method 09/03/24 11:47 37.9 C H 102 H 18 121/72 90 Room Air 09/03/24 08:00 104 H 09/03/24 08:00 Nasal Cannula 09/03/24 07:53 37.1 C 104 H 20 94/66 L 91 Room Air 09/03/24 03:11 36.8 C 111 H 20 116/60 94 Nasal Cannula O2 Flow Rate 09/03/24 11:47 09/03/24 08:00 09/03/24 08:00 2 09/03/24 07:53 09/03/24 03:11 2 Laboratory Results Cardiac Enzymes 09/02/24 09/02/24 09/02/24 Range/Units 11:51 13:10 16:33 AST 17 (13-39) U/L Troponin I High Sens 139.1 H* 122.7 H* (0-20) pg/ml B-Natriuretic Peptide 239 H (0-100) pg/ml 09/02/24 09/03/24 Range/Units 18:33 06:28 AST 23 (13-39) U/L Troponin I High Sens 131.2 H* (0-20) pg/ml B-Natriuretic Peptide (0-100) pg/ml Coagulation 09/02/24 09/02/24 09/03/24 Range/Units 11:15 13:10 06:28 PT 11.7 (9.0-12.0) Seconds APTT 28 40 H (21-31) Seconds B-Natriuretic Peptide 239 H (0-100) pg/ml Lipids 09/02/24 Range/Units 11:51 Triglycerides 58 (0-150) mg/dl Cholesterol 107 (0-200) mg/dl HDL Cholesterol 44 mg/dl Cholesterol/HDL Ratio 2.4 (0-5) CBC 09/03/24 Range/Units 06:28 WBC 10.88 H (4.8-10.8) K/ul RBC 4.54 L (4.70-6.10) M/uL Hgb 14.2 (14.0-18.0) g/dl Hct 41.0 L (42.0-52.0) % Plt Count 184 (130-400) K/uL Neut # (Auto) 7.92 H (1.40-6.50) K/uL Lymph # (Auto) 1.99 (1.20-3.40) K/uL [place] # (Auto) 0.88 H (0.11-0.59) K/uL Eos # (Auto) 0.01 (0.00-0.50) K/uL Baso # (Auto) 0.03 (0.00-0.20) K/uL Comprehensive Metabolic Panel 09/02/24 09/03/24 Range/Units 11:51 06:28 Sodium 136 (136-145) mmol/L Potassium 3.7 3.7 (3.5-5.1) mmol/L Chloride 105 (98-107) mmol/L Carbon Dioxide 24 (21-32) mmol/L BUN 13 (6-23) mg/dl Creatinine 0.88 (0.6-1.4) mg/dl Glucose 118 H (70-99(Fasting)) mg/dl Calcium 8.4 L (8.6-10.3) mg/dl AST 17 23 (13-39) U/L ALT 26 (7-52) U/L Alkaline Phosphatase 59 (34-104) U/L Total Protein 6.5 (6.0-8.3) gm/dl Albumin 3.6 (3.4-5.0) gm/dl Intake and Output 09/02/24 09/03/24 09/03/24 22:59 06:59 14:59 Intake Total 332.00 / 2444.80 863.00 / 2444.80 29.7 / 29.7 Output Total 240 / 240 Balance 92.00 / 2204.80 863.00 / 2204.80 29.7 / 29.7 Intake: IV 212.00 / 1874.80 413.00 / 1874.80 29.7 / 29.7 Heparin Sodium/Dextrose 25,000 209.25 / 500.00 290.75 / 500.00 29.7 / 29.7 units In 500 ml @ 1,650 UNITS/ HR 33 mls/hr IV .[id number] [facility] Rx #:[id number] dilTIAZem HCL 125 mg In 2.75 / 125.00 122.25 / 125.00 Dextrose 5% 100 ml @ 10 MG/HR 10 mls/hr IV .[id number] [facility] Rx#: [id number] Oral 120 / 570 450 / 570 Output: Urine 240 / 240 Other: Weight 104.9 kg 104.2 kg Weight Measurement Method [facility] in [facility] (1) CAP (community acquired pneumonia) Laterality: right Lung location: lower lobe of lung Qualified Code(s): J18.9 - Pneumonia, unspecified organism
--- NOTE | 2024-09-03 13:02 | Hospitalist Progress Note ---
Date of Service September 03, 2024 Assessment & Plan (1) Sepsis: Plan: -qualified by tachycardia and leukocytosis secondary to community-acquired pneumonia Plan: -order blood cultures x2, sputum culture - has been getting intravenous ceftriaxone and azithromycin orally -check MRSA - negative He has been feeling little better (2) CAP (community acquired pneumonia): Plan: -clinical diagnosis based on fever and cough, albeit unproductive -procal is negative, viral workup is negative -differential includes HF exaccerbation (possible but does not appear severely fluid overloaded), methotrexate induced pneumonitis (possible), less likely PE (given imaging findings), sarcoidosis (possible but less likely) Plan: -check BNP, f/u next troponin, consult rheumatology given concern for methotrexa te induced pneumonitis if no improvement with abx -stop fluids for now given does not appear volume down -continue azithromycin/ceftriaxone x5-7 days -check legionella antigen- pending (3) NSTEMI, initial episode of care: Plan: -likely in setting of new onset atrial flutter, likely 3 weeks ago -not on anticoagulation, [id number] score of 3 meaning anticoagulation is indicated Plan: echo of the heart showed mild diffuse left ventricular hypokinesis with LVEF of 45 to 50% - troponins mildly elevated and the patient has been getting intravenous heparin until it is clear that he will not need for any intervention appreciate cardiology input and recommendation (4) Atrial flutter by electrocardiogram: Plan: -new onset, likely 3 weeks ago when chest pressure began -hemodynamically stable Plan: -cardiology consult, appreciate recs -check A1c- 5.6, lipids- noted, TSH for risk - normal at 0.543 -given 5mg IV metoprolol now, start 12.5 mg q6hrs scheduled PO loppressor for rate control - remains tachycardic and Cardizem drip has been discontinued (5) Rheumatoid arthritis in remission: Plan: -on methotrexate -joint pain well controlled however given imaging findings and fever lower on differential but possible would be methotrexate induced pneumonitis Plan: -title examiner clinical response, if not feeling better over next few days consult rheumatology for consideration of steroids and further workup -hold methotrexate for now - no acute arthritis involving any of the joint (6) BPH (benign prostatic hyperplasia): Plan: -not taking prescribed flomax (7) On methotrexate therapy: Plan: -see above Plan DVT prophylaxis -on intravenous heparin CODE STATUS full Admission and Anticipated Discharge Date Admission Date: September 02, 2024 Subjective 09/03/2024 The patient was seen and examined in telemetry unit She has been complaining of shortness of breath and weakness with cough Denies any chest pain and/or palpitation Review of Systems Review of Systems: All systems reviewed and are unremarkable except as noted below Physical Exam Physical Exam: Lying in bed without any acute distress Constitutional: well developed, well nourished, + ill appearing and + obese Eyes: PERRL, conjunctivae normal, anicteric sclerae ENMT: external ear and nose normal, oropharynx normal Neck: trachea midline, no thyromegaly Respiratory: + respiratory distress ( minimal distres s at rest) Auscultation: + diminished lung sounds and + crackles ( minimal crackles at the bases) Cardiovascular: Rate/Rhythm: regular rate, regular rhythm and + tachycardic Heart Sounds: normal S1 and normal S2; no murmur Extremities: + edema Gastrointestinal (Abdomen): Inspection/Auscultation: normal bowel sounds; abdomen not distended Percussion/Palpation: abdomen soft; abdomen nontender Musculoskeletal: No acute arthritis involving any of the joint Neurologic: normal touch/pain/proprioception and moves all extremities; no focal motor deficits Lymphatic: no cervical or axillary lymphadenopathy Results & Data Results & Data Vital Signs (Past 12 Hours) Vital Signs Temp Pulse Pulse Resp BP Pulse Ox O2 Del Method 09/03/24 11:47 37.9 C H 102 H 18 121/72 90 Room Air 09/03/24 08:00 104 H 09/03/24 08:00 Nasal Cannula 09/03/24 07:53 37.1 C 104 H 20 94/66 L 91 Room Air 09/03/24 03:11 36.8 C 111 H 20 116/60 94 Nasal Cannula O2 Flow Rate 09/03/24 11:47 09/03/24 08:00 09/03/24 08:00 2 09/03/24 07:53 09/03/24 03:11 2 Laboratory Results Short CBC 09/03/24 Range/Units 06:28 WBC 10.88 H (4.8-10.8) K/ul Hgb 14.2 (14.0-18.0) g/dl Hct 41.0 L (42.0-52.0) % Plt Count 184 (130-400) K/uL BMP 09/02/24 09/03/24 11:51 06:28 Sodium 136 Potassium 3.7 3.7 Chloride 105 Carbon Dioxide 24 BUN 13 Creatinine 0.88 Glucose 118 H Calcium 8.4 L Liver Function 09/02/24 09/03/24 Range/Units 11:51 06:28 Total Bilirubin 1.0 (0.2-1.0) mg/dl AST 17 23 (13-39) U/L ALT 26 (7-52) U/L Alkaline Phosphatase 59 (34-104) U/L Albumin 3.6 (3.4-5.0) gm/dl Medications Administered Current Inpatient Medications Acetaminophen (Acetaminophen 325 Mg Tab) 650 mg PO Q4H PRN PRN Reason: Pain or Fever Stop: 10/02/24 15:53 Last Admin: 09/02/24 20:31 Dose: 650 mg Aspirin (Aspirin 81 Mg Ectab) [address] [facility] Stop: 10/03/24 08:59 Last Admin: 09/03/24 08:41 Dose: 81 mg Atorvastatin Calcium (Atorvastatin 40 Mg Tab) [address] [facility] Stop: 10/02/24 13:29 Last Admin: 09/03/24 08:41 Dose: 40 mg Azithromycin (Azithromycin 250 Mg Tab) [address] [facility] Stop: 09/08/24 08:59 Last Admin: 09/03/24 08:41 Dose: 500 mg Heparin Sodium/Dextrose (Heparin Sodium/Dextrose) 25,000 units in 500 mls @ 35 mls/hr IV .[id number] [facility]; Protocol Stop: 10/02/24 14:29 Last Admin: 09/03/24 10:39 Dose: Not Given Ceftriaxone Sodium (Rocephin) 2,000 mg in 50 mls @ 100 mls/hr IV Q24H [facility]; Protocol Stop: 09/08/24 11:59 Last Infusion: 09/03/24 12:37 Dose: Infused Metoprolol Succinate (Metoprolol Succ 50mg Ext Rel Tab) 50 mg PO BID [facility] Stop: 10/03/24 20:59 Ondansetron HCl (Ondansetron Inj 2 Mg/Ml 2 Ml Vial) 4 mg IV Q6H PRN PRN Reason: Nausea Stop: 10/02/24 15:53 Polyethylene Glycol (Polyethylene (Miralax) 17 Gm Pack) 17 gm PO DAILY PRN PRN Reason: Constipation Stop: 10/02/24 15:53 (1) Sepsis Sepsis type: sepsis due to unspecified organism Sepsis acute organ dysfunction status: unspecified Qualified Code(s): A41.9 - Sepsis, unspecified organism (2) CAP (community acquired pneumonia) Laterality: right Lung location: lower lobe of lung Qualified Code(s): J18.9 - Pneumonia, unspecified organism (6) BPH (benign prostatic hyperplasia) Lower urinary tract symptom presence: symptoms present Lower urinary tract symptom detail: urinary frequency Qualified Code(s): N40.1 - Benign prostatic hyperplasia with lower urinary tract symptoms; R35.0 - Frequency of micturition
[2024-09-03 17:14] LABS: ANTI-Xa, UFH(UnfractionatedHep 0.38 IU/ml (0.3-0.7)
[2024-09-03] MEDS: METOPROLOL SUCC 50MG EXT REL TAB PO SCH (20:02)
[2024-09-03] MEDS: METOPROLOL TARTRATE 1 MG/ML VIAL IV STA (23:52)
[2024-09-04 06:36] LABS: Basophils # (auto) 0.02 K/uL (0.00-0.20); Basophils % (auto) 0.2 %; Eosinophils # (auto) 0.06 K/uL (0.00-0.50); Eosinophils % (auto) 0.7 %; Hematocrit (blood only) 41.2 % (42.0-52.0); Hemoglobin 13.8 g/dl (14.0-18.0); Immature Granulocytes # (auto) 0.03 K/uL (0.01-0.20); Immature Granulocytes % (auto) 0.4 %; Lymphocytes # (auto) 2.15 K/uL (1.20-3.40); Lymphocytes % (auto) 26.1 %; Mean Corpuscular Hemoglobin 30.5 pg (25.0-34.0); Mean Corpuscular Hgb Conc 33.5 g/dL (32.0-36.0); Mean Corpuscular Volume 90.9 fL (80.0-100.0); Mean Platelet Volume 9.5 fL (9.4-12.4); Monocytes # (auto) 0.94 K/uL (0.11-0.59); Monocytes % (auto) 11.4 %; Neutrophils # (auto) 5.04 K/uL (1.40-6.50); Neutrophils % (auto) 61.2 %; Platelet Count 197 K/uL (130-400); RDW Coefficient of Variation 13.6 % (11.5-14.5); RDW Standard Deviation 45.8 fL (36.4-46.3); Red Blood Count 4.53 M/uL (4.70-6.10); White Blood Count 8.24 K/ul (4.8-10.8)
[2024-09-04 06:50] LABS: BUN Creatinine Ratio 15.5 (10-20); Calcium 8.6 mg/dl (8.6-10.3); Creatinine Clr Calc Pharmacy 101.6 ml/min; Magnesium 2.1 mg/dl (1.7-2.4); Phosphorus 2.5 mg/dl (2.5-4.9); Potassium 3.9 mmol/L (3.5-5.1)
[2024-09-04] MEDS: guaiFENesin/DEXTROM SYRUP 200MG/20MG 10ML UDC PO PRN (11:44)
--- NOTE | 2024-09-04 11:48 | Hospitalist Progress Note ---
Date of Service September 04, 2024 Assessment & Plan (1) Sepsis: Plan: -qualified by tachycardia and leukocytosis secondary to community-acquired pneumonia Plan: -order blood cultures x2, sputum culture - has been getting intravenous ceftriaxone and azithromycin orally -check MRSA - negative He has been feeling little better blood cultures have been negative and he has been feeling better Remains afebrile and white count has reverted to normal (2) CAP (community acquired pneumonia): Plan: -clinical diagnosis based on fever and cough, albeit unproductive -procal is negative, viral workup is negative -differential includes HF exaccerbation (possible but does not appear severely fluid overloaded), methotrexate induced pneumonitis (possible), less likely PE (given imaging findings), sarcoidosis (possible but less likely) Plan: -check BNP, f/u next troponin, consult rheumatology given concern for methotrexate induced pneumonitis if no improvement with abx -stop fluids for now given does not appear volume down -continue azithromycin/ceftriaxone x5-7 days -check legionella antigen- pending (3) NSTEMI, initial episode of care: Plan: -likely in setting of new onset atrial flutter, likely 3 weeks ago -not on anticoagulation, [id number] score of 3 meaning anticoagulation is indicated Plan: echo of the heart showed mild diffuse left ventricular hypokinesis with LVEF of 45 to 50% - troponins mildly elevated and the patient has been getting intravenous heparin until it is clear that he will not need for any intervention appreciate cardiology input and recommendation Denies any chest pain and/or palpitation and is still getting intravenous heparin (4) Atrial flutter by electrocardiogram: Plan: -new onset, likely 3 weeks ago when chest pressure began -hemodynamically stable Plan: -cardiology consult, appreciate recs -check A1c- 5.6, lipids- noted, TSH for risk - normal at 0.543 -given 5mg IV metoprolol now, start 12.5 mg q6hrs scheduled PO loppressor for rate control - remains tachycardic and Cardizem drip has been discontinued Continues to have tachycardia especially when ambulance and that goes up to upper 120s (5) Rheumatoid arthritis in remission: Plan: -on methotrexate -joint pain well controlled however given imaging findings and fever lower on differential but possible would be methotrexate induced pneumonitis Plan: -pathology lab technician clinical response, if not feeling better over next few days consult rheumatology for consideration of steroids and further workup -hold methotrexate for now - no acute arthritis involving any of the joint (6) BPH (benign prostatic hyperplasia): Plan: -not taking prescribed flomax (7) On methotrexate therapy: Plan: -see above Plan DVT prophylaxis -on intravenous heparin CODE STATUS full Admission and Anticipated Discharge Date Admission Date: September 02, 2024 Subjective 09/03/2024 The patient was seen and examined in telemetry unit She has been complaining of shortness of breath and weakness with cough Denies any chest pain and/or palpitation 09/04/2024 The patient was seen and examined in telemetry unit He complains today of some cough with associated pain involving bilateral lower chest wall He has had questionable blood in the sputum but I have not noticed that Denies any fever and/or chills but his heart rate is remain high especially when ambulance at around 120s Review of Systems Review of Systems: All systems reviewed and are unremarkable except as noted below Physical Exam Physical Exam: Lying in bed without any acute distress Constitutional: well developed, well nourished, + ill appearing and + obese Eyes: PERRL, conjunctivae normal, anicteric sclerae ENMT: external ear and nose normal, oropharynx normal Neck: trachea midline, no thyromegaly Respiratory: + respiratory distress ( minimal distres s at rest) Auscultation: + diminished lung sounds and + crackles ( minimal crackles at the bases) Cardiovascular: Rate/Rhythm: regular rate, regular rhythm and + tachycardic Heart Sounds: normal S1 and normal S2; no murmur Extremities: + edema Gastrointestinal (Abdomen): Inspection/Auscultation: normal bowel sounds; abdomen not distended Percussion/Palpation: abdomen soft; abdomen nontender Musculoskeletal: No acute arthritis involving any of the joint Neurologic: normal touch/pain/proprioception and moves all extremities; no focal motor deficits Lymphatic: no cervical or axillary lymphadenopathy Results & Data Results & Data Vital Signs (Past 12 Hours) Vital Signs Temp Pulse Pulse Resp BP BP Pulse Ox 09/04/24 08:01 36.6 C 126 H 18 130/82 92 09/04/24 08:00 09/04/24 08:00 93 H 09/04/24 06:52 115 H 09/04/24 04:06 37.8 C H 104 H 12 109/74 95 09/04/24 00:19 100 H 94/66 L 09/04/24 00:18 36.9 C 107 H 12 103/64 93 09/03/24 23:52 129 H O2 Del Method 09/04/24 08:01 Room Air 09/04/24 08:00 Room Air 09/04/24 08:00 09/04/24 06:52 09/04/24 04:06 Room Air 09/04/24 00:19 09/04/24 00:18 Room Air 09/03/24 23:52 Laboratory Results Short CBC 09/04/24 Range/Units 05:49 WBC 8.24 (4.8-10.8) K/ul Hgb 13.8 L (14.0-18.0) g/dl Hct 41.2 L (42.0-52.0) % Plt Count 197 (130-400) K/uL BMP 09/04/24 05:49 Sodium 138 Potassium 3.9 Chloride 105 Carbon Dioxide 29 BUN 13 Creatinine 0.84 Glucose 114 H Calcium 8.6 Medications Administered Current Inpatient Medications Acetaminophen (Acetaminophen 325 Mg Tab) 650 mg PO Q4H PRN PRN Reason: Pain or Fever Stop: 10/02/24 15:53 Last Admin: 09/03/24 18:27 Dose: 650 mg Aspirin (Aspirin 81 Mg Ectab) 81 mg PO [facility] Stop: 10/03/24 08:59 Last Admin: 09/04/24 07:19 Dose: 81 mg Atorvastatin Calcium (Atorvastatin 40 Mg Tab) 40 mg PO [facility] Stop: 10/02/24 13:29 Last Admin: 09/04/24 07:19 Dose: 40 mg Azithromycin (Azithromycin 250 Mg Tab) 500 mg PO [facility] Stop: 09/08/24 08:59 Last Admin: 09/04/24 07:19 Dose: 500 mg Guaifenesin/Dextromethorphan (Guaifenesin/Dextrom Syrup 200mg/20mg 10ml Udc) 10 ml PO Q6H PRN PRN Reason: Cough Stop: 10/04/24 08:06 Last Admin: 09/04/24 11:44 Dose: 10 ml Heparin Sodium/Dextrose (Heparin Sodium/Dextrose) 25,000 units in 500 mls @ 35 mls/hr IV .[id number] [facility]; Protocol Stop: 10/02/24 14:29 Last Admin: 09/04/24 11:18 Dose: Not Given Ceftriaxone Sodium (Rocephin) 2,000 mg in 50 mls @ 100 mls/hr IV Q24H [facility]; Protocol Stop: 09/08/24 11:59 Last Admin: 09/04/24 11:40 Dose: 100 mls/hr Metoprolol Succinate (Metoprolol Succ 50mg Ext Rel Tab) 50 mg PO BID [facility] Stop: 10/03/24 20:59 Last Admin: 09/04/24 07:20 Dose: 50 mg Ondansetron HCl (Ondansetron Inj 2 Mg/Ml 2 Ml Vial) 4 mg IV Q6H PRN PRN Reason: Nausea Stop: 10/02/24 15:53 Polyethylene Glycol (Polyethylene (Miralax) 17 Gm Pack) 17 gm PO DAILY PRN PRN Reason: Constipation Stop: 10/02/24 15:53 (1) Sepsis Sepsis type: sepsis due to unspecified organism Sepsis acute organ dysfunction status: unspecified Qualified Code(s): A41.9 - Sepsis, unspecified organism (2) CAP (community acquired pneumonia) Laterality: right Lung location: lower lobe of lung Qualified Code(s): J18.9 - Pneumonia, unspecified organism (6) BPH (benign prostatic hyperplasia) Lower urinary tract symptom presence: symptoms present Lower urinary tract symptom detail: urinary frequency Qualified Code(s): N40.1 - Benign prostatic hyperplasia with lower urinary tract symptoms; R35.0 - Frequency of micturition
--- NOTE | 2024-09-04 12:47 | Cardiology Progress Note ---
Date of Service September 04, 2024 Assessment & Plan (1) Acute heart failure with mildly reduced ejection fraction (HFmrEF, 41-49%): (2) Atrial flutter by electrocardiogram: (3) Demand ischemia: (4) CAP (community acquired pneumonia): Plan: 69 year old [place], who has lived in [place] x 20 years. 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 Echocardiogram reveals borderline to mild diffuse left ventricular hypokinesis LVEF in the range of 45-50%. Patient is felt poorly for the last 3 weeks. Suspect he has developed underlying pneumonia and superimposed atrial fibrillation/flutter with left ventricular systolic dysfunction and heart cas lure that may be tachycardia induced. BNP screening minimally elevated 239 PG per mL. Serial mild elevation in high sensitive troponin (flat trend) 128.9--> 139 -->122--> 131.2 PG per * Increase metoprolol to succinate to 75 mg twice daily * Add digoxin * furosemide 20 mg IV x1 now, KCL 20 Meq PO x 1. * Start low dose losartan 09/05 . * Legionella antigen pending * Continue heparin infusion for stroke prophylaxis pending Determination with regards to need for invasive procedures during hospital stay. Dr Julio lee , 09/05 . Admission and Anticipated Discharge Date Admission Date: September 02, 2024 Physical Exam Physical Exam: Temp Pulse Resp BP Pulse Ox O2 Del Method O2 Flow Rate 37.9 C H 102 H 18 121/72 90 Room Air 2 09/03/24 11:47 09/03/24 11:47 09/03/24 11:47 09/03/24 11:47 09/03/24 11:47 09/03/24 11:47 09/03/24 08:00 General: no acute distress and stated age Eyes: conjunctiva are pink and non-injected, sclera clear Neck: normal jugular venous pulse, no hepatojugular reflux Chest: normal shape and normal respiratory effort Lungs: Coarse breath sounds noted throughout the mid lung dominguez Cardiac Exam: -Irregular rhythm, tachycardic, no murmurs Abdomen: abdomen soft, non-tender, no abnormal masses and no hepatosplenomegaly Musculoskeletal: no gait disturbance, no weakness Extremities: no edema and no cyanosis Neuro:awake, conversant, follows commands, no focal motor deficits Psych: appropriate affect and insight. Results & Data Vital Signs (Past 12 Hours) Vital Signs Temp Pulse Pulse Resp BP Pulse Ox O2 Del Method 09/04/24 12:00 36.6 C 119 H 18 107/69 91 Room Air 09/04/24 08:01 36.6 C 126 H 18 130/82 92 Room Air 09/04/24 08:00 Room Air 09/04/24 08:00 93 H 09/04/24 06:52 115 H 09/04/24 04:06 37.8 C H 104 H 12 109/74 95 Room Air (4) CAP (community acquired pneumonia) Laterality: right Lung location: lower lobe of lung Qualified Code(s): J18.9 - Pneumonia, unspecified organism
[2024-09-04] MEDS: DIGOXIN 250 MCG in SYRINGE 9 ML IV STA (13:40)
[2024-09-04] MEDS: POTASSIUM CHLORIDE CRTAB 20 MEQ TABCR PO STA (13:43)
[2024-09-04] MEDS: FUROSEMIDE INJ 20 MG/2 ML VIAL IV ONE (13:43)
[2024-09-04] MEDS: METOPROLOL SUCC 25MG EXT REL TAB PO SCH (19:55)
[2024-09-05] MEDS: METOPROLOL TARTRATE 1 MG/ML VIAL IV STA (00:11)
[2024-09-05 07:30] LABS: BUN Creatinine Ratio 16.9 (10-20); Calcium 8.8 mg/dl (8.6-10.3); Creatinine Clr Calc Pharmacy 102.1 ml/min; Magnesium 2.1 mg/dl (1.7-2.4); Potassium 4.1 mmol/L (3.5-5.1)
[2024-09-05 08:15] LABS: ANTI-Xa, UFH(UnfractionatedHep 0.32 IU/ml (0.3-0.7)
[2024-09-05] MEDS: LOSARTAN POTASSIUM 25 MG TAB PO SCH (08:31)
--- NOTE | 2024-09-05 11:33 | Hospitalist Progress Note ---
Date of Service September 05, 2024 Assessment & Plan (1) Sepsis: Plan: -qualified by tachycardia and leukocytosis secondary to community-acquired pneumonia Plan: -order blood cultures x2, sputum culture - has been getting intravenous ceftriaxone and azithromycin orally -check MRSA - negative He has been feeling little better blood cultures have been negative and he has been feeling better Remains afebrile and white count has reverted to normal Will finish antibiotic course of 7 to 10 days with Keflex and azithromycin course will be done in the next 2 days Clinically much better and will get PT and OT eval patient (2) CAP (community acquired pneumonia): Plan: -clinical diagnosis based on fever and cough, albeit unproductive -procal is negative, viral workup is negative -differential includes HF exaccerbation (possible but does not appear severely fluid overloaded), methotrexate induced pneumonitis (possible), less likely PE (given imaging findings), sarcoidosis (possible but less likely) Plan: -check BNP, f/u next troponin, consult rheumatology given concern for methotrexate induced pneumonitis if no improvement with abx -stop fluids for now given does not appear volume down -continue azithromycin/ceftriaxone x5-7 days -check legionella antigen-no Legionella antigen today PT OT evaluation (3) NSTEMI, initial episode of care: Plan: -likely in setting of new onset atrial flutter, likely 3 weeks ago -not on anticoagulation, [id number] score of 3 meaning anticoagulation is indicated Plan: echo of the heart showed mild diffuse left ventricular hypokinesis with LVEF of 45 to 50% - troponins mildly elevated and the patient has been getting intravenous heparin until it is clear that he will not need for any intervention appreciate cardiology input and recommendation Denies any chest pain and/or palpitation and is still getting intravenous heparin -No cardiac symptoms and the heart rate seems to be controlled (4) Atrial flutter by electrocardiogram: Plan: -new onset, likely 3 weeks ago when chest pressure began -hemodynamically stable Plan: -cardiology consult, appreciate recs -check A1c- 5.6, lipids- noted, TSH for risk - normal at 0.543 -given 5mg IV metoprolol now, start 12.5 mg q6hrs scheduled PO loppressor for rate control - remains tachycardic and Cardizem drip has been discontinued Continues to have tachycardia especially when ambulance and that goes up to upper 120s -Will need oral anticoagulation on discharge (5) Rheumatoid arthritis in remission: Plan: -on methotrexate -joint pain well controlled however given imaging findings and fever lower on differential but possible would be methotrexate induced pneumonitis Plan: -tie tamper clinical response, if not feeling better over next few days consult rheumatology for consideration of steroids and further workup -hold methotrexate for now - no acute arthritis involving any of the joint No acute arthritis involving any of the joint- (6) BPH (benign prostatic hyperplasia): Plan: -not taking prescribed flomax (7) On methotrexate therapy: Plan: -see above Plan DVT prophylaxis -on intravenous heparin CODE STATUS full Admission and Anticipated Discharge Date Admission Date: September 02, 2024 Subjective 09/03/2024 The patient was seen and examined in telemetry unit She has been complaining of shortness of breath and weakness with cough Denies any chest pain and/or palpitation 09/04/2024 The patient was seen and examined in telemetry unit He complains today of some cough with associated pain involving bilateral lower chest wall He has had questionable blood in the sputum but I have not noticed that Denies any fever and/or chills but his heart rate is remain high especially when ambulance at around 120s 09/05/2024 The patient was seen and examined in telemetry unit He has been much better today Cough has decreased and no more hemoptysis Heart rate remains elevated but better than yesterday and denies any cardiac symptoms Review of Systems Review of Systems: All systems reviewed and are unremarkable except as noted below Physical Exam Physical Exam: Lying in bed without any acute distress Constitutional: well developed, well nourished, + ill appearing and + obese Eyes: PERRL, conjunctivae normal, anicteric sclerae ENMT: external ear and nose normal, oropharynx normal Neck: trachea midline, no thyromegaly Respiratory: + respiratory distress ( minimal distres s at rest) Auscultation: + diminished lung sounds and + crackles ( minimal crackles at the bases) Cardiovascular: Rate/Rhythm: regular rate, regular rhythm and + tachycardic Heart Sounds: normal S1 and normal S2; no murmur Extremities: + edema Gastrointestinal (Abdomen): Inspection/Auscultation: normal bowel sounds; abdomen not distended Percussion/Palpation: abdomen soft; abdomen nontender Musculoskeletal: No acute arthritis involving any of the joint Neurologic: normal touch/pain/proprioception and moves all extremities; no focal motor deficits Lymphatic: no cervical or axillary lymphadenopathy Results & Data Results & Data Vital Signs (Past 12 Hours) Vital Signs Temp Pulse Pulse Resp BP BP Pulse Ox 09/05/24 11:05 96 H 09/05/24 11:05 09/05/24 08:00 37.0 C 105 H 18 120/81 95 09/05/24 03:42 36.7 C 129 H 20 110/80 94 09/05/24 01:55 96 H 09/05/24 00:27 127 H 09/05/24 00:18 117 H 118/94 09/05/24 00:11 122 H 126/69 O2 Del Method 09/05/24 11:05 09/05/24 11:05 Room Air 09/05/24 08:00 Room Air 09/05/24 03:42 Room Air 09/05/24 01:55 09/05/24 00:27 09/05/24 00:18 09/05/24 00:11 Laboratory Results BMP 09/05/24 06:26 Sodium 140 Potassium 4.1 Chloride 104 Carbon Dioxide 30 BUN 14 Creatinine 0.83 Glucose 105 H Calcium 8.8 Medications Administered Current Inpatient Medications Acetaminophen (Acetaminophen 325 Mg Tab) 650 mg PO Q4H PRN PRN Reason: Pain or Fever Stop: 10/02/24 15:53 Last Admin: 09/03/24 18:27 Dose: 650 mg Aspirin (Aspirin 81 Mg Ectab) 81 mg PO [facility] Stop: 10/03/24 08:59 Last Admin: 09/05/24 08:31 Dose: 81 mg Atorvastatin Calcium (Atorvastatin 40 Mg Tab) 40 mg PO [facility] Stop: 10/02/24 13:29 Last Admin: 09/05/24 08:31 Dose: 40 mg Azithromycin (Azithromycin 250 Mg Tab) 500 mg PO [facility] Stop: 09/08/24 08:59 Last Admin: 09/05/24 08:31 Dose: 500 mg Digoxin (Digoxin 0.125 Mg Tab) 0.125 mg PO DAILY@1600 [facility] Stop: 10/05/24 15:59 Guaifenesin/Dextromethorphan (Guaifenesin/Dextrom Syrup 200mg/20mg 10ml Udc) 10 ml PO Q6H PRN PRN Reason: Cough Stop: 10/04/24 08:06 Last Admin: 09/05/24 08:30 Dose: 10 ml Heparin Sodium/Dextrose (Heparin Sodium/Dextrose) 25,000 units in 500 mls @ 35 mls/hr IV .[id number] [facility]; Protocol Stop: 10/02/24 14:29 Last Titration: 09/05/24 08:27 Dose: 1,750 units/hr, 35 mls/hr Ceftriaxone Sodium (Rocephin) 2,000 mg in 50 mls @ 100 mls/hr IV Q24H [facility]; Protocol Stop: 09/08/24 11:59 Last Infusion: 09/04/24 12:10 Dose: Infused Losartan Potassium (Losartan Potassium 25 Mg Tab) 12.5 mg PO QAM [facility] Stop: 10/05/24 08:59 Last Admin: 09/05/24 08:31 Dose: 12.5 mg Metoprolol Succinate (Metoprolol Succ 25mg Ext Rel Tab) 75 mg PO BID [facility] Stop: 10/04/24 20:59 Last Admin: 09/05/24 08:30 Dose: 75 mg Ondansetron HCl (Ondansetron Inj 2 Mg/Ml 2 Ml Vial) 4 mg IV Q6H PRN PRN Reason: Nausea Stop: 10/02/24 15:53 Polyethylene Glycol (Polyethylene (Miralax) 17 Gm Pack) 17 gm PO DAILY PRN PRN Reason: Constipation Stop: 10/02/24 15:53 (1) Sepsis Sepsis type: sepsis due to unspecified organism Sepsis acute organ dysfunction status: unspecified Qualified Code(s): A41.9 - Sepsis, unspecified organism (2) CAP (community acquired pneumonia) Laterality: right Lung location: lower lobe of lung Qualified Code(s): J18.9 - Pneumonia, unspecified organism (6) BPH (benign prostatic hyperplasia) Lower urinary tract symptom presence: symptoms present Lower urinary tract symptom detail: urinary frequency Qualified Code(s): N40.1 - Benign prostatic h yperplasia with lower urinary tract symptoms; R35.0 - Frequency of micturition
--- NOTE | 2024-09-05 12:54 | Cardiology Progress Note ---
Date of Service September 05, 2024 Assessment & Plan (1) Acute heart failure with mildly reduced ejection fraction (HFmrEF, 41-49%): (2) Atrial flutter by electrocardiogram: (3) Demand ischemia: (4) CAP (community acquired pneumonia): Plan 09/04/[address] Hyman 69 year old [place] of [place], who has lived in [place] x 20 years. 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 Echocardiogram reveals borderline to mild diffuse left ventricular hypokinesis LVEF in the range of 45-50%. Patient is felt poorly for the last 3 weeks. Suspect he has developed underlying pneumonia and superimposed atrial fibrillation/flutter with left ventricular systolic dysfunction and heart failure that may be tachycardia induced. BNP screening minimally elevated 239 PG per mL. Serial mild elevation in high sensitive troponin (flat trend) 128.9--> 139 -->122--> 131.2 PG per * Increase metoprolol to succinate to 75 mg twice daily * Add digoxin * furosemide 20 mg IV x1 now, KCL 20 Meq PO x 1. * Start low dose losartan 09/05 . * Legionella antigen pending * Continue heparin infusion for stroke prophylaxis pending Determination with regards to need for invasive procedures during hospital stay. 09/05/24: Patient remains in persistent atrial flutter RVR despite ongoing med titration (metoprolol increased to 75 mg BID and dig added yesterday) Increase metoprolol to 100 mg BID. Continue digoxin. Continue IV heparin and transition to oral Eliquis 5 mg BID prior to discharge. Once respiratory status has improved, if HR's remain elevated, may need to consider KAVITA/CV to restore NSR. Continue ASA, statin, losartan. Treatment for sepsis, CAP per hospitalist. Blood cultures remain negative. Continue antibiotics. 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 He reports friends will be coming to help drive him and his truck home. He will not be driving home. Case discussed with Dr. Kim I spent a total of 40 minutes on the date of service in preparation, delivery, and documentation of the care provided to this patient, excluding any time spent in the performance of separately billed services. Esthela Berumen PA-C Department of Cardiology, [facility] This chart was completed in part utilizing Speech Voice Recognition Software. Grammatical errors, random word insertions, pronoun errors, and incomplete sentences are an occasional consequence of this system due to software limitations, ambient noise, and hardware issues. Any formal questions or con cerns about the content, text, or information contained within the body of this dictation should be directly addressed to the provider for clarification. Admission and Anticipated Discharge Date Admission Date: September 02, 2024 Supervising Physician Co-Signing Physician Notes I have personally performed a history and physical examination on the patient. I have reviewed the advance practitioner's documentation, and I agree with, and take responsibility for the plan of care. 69-year-old male admitted with community-acquired pneumonia, atrial flutter with rapid ventricular response, mildly elevated troponin secondary to demand ischemia, and mild LV systolic dysfunction with heart failure. Clinically improved although heart rates remain elevated. Agree with titration of Toprol- XL to 100 mg twice daily. Continue digoxin and anticoagulation. N.p.o. except medications after midnight to consider transesophageal echo guided cardioversion in a.m. 09/06/2024. I spent a total of 30 minutes on the date of service in preparation, delivery, and documentation of the care provided to this patient, excluding any time spent in the performance of separately billed services. Sung Kim DO, [facility] Subjective Patient resting in bed feeling ok. Ongoing cough and SOB reported. feels his "heart pounding" intermittently or with exertion. Remains in atrial flutter with elevated rates despite digoxin and metoprolol. Review of Systems Review of Systems: All systems reviewed & are unremarkable except as noted in HPI & below Physical Exam Physical Exam: General: no acute distress and stated age Eyes: conjunctiva are pink and non-injected, sclera clear Neck: normal jugular venous pulse, no hepatojugular reflux Chest: normal shape and normal respiratory effort Lungs: Coarse breath sounds noted throughout the mid lung dominguez Cardiac Exam: -Irregular rhythm, tachycardic, no murmurs Abdomen: abdomen soft, non-tender, no abnormal masses and no hepatosplenomegaly Musculoskeletal: no gait disturbance, no weakness Extremities: no edema and no cyanosis Neuro:awake, conversant, follows commands, no focal motor deficits Psych: appropriate affect and insight. Results & Data Vital Signs (Past 12 Hours) Vital Signs Temp Pulse Pulse Resp BP Pulse Ox O2 Del Method 09/05/24 11:46 36.7 C 128 H 18 106/79 97 Room Air 09/05/24 11:05 96 H 09/05/24 11:05 Room Air 09/05/24 08:00 37.0 C 105 H 18 120/81 95 Room Air 09/05/24 03:42 36.7 C 129 H 20 110/80 94 Room Air 09/05/24 01:55 96 H Laboratory Results Comprehensive Metabolic Panel 09/05/24 Range/Units 06:26 Sodium 140 (136-145) mmol/L Potassium 4.1 (3.5-5.1) mmol/L Chloride 104 (98-107) mmol/L Carbon Dioxide 30 (21-32) mmol/L BUN 14 (6-23) mg/dl Creatinine 0.83 (0.6-1.4) mg/dl Glucose 105 H (70-99(Fasting)) mg/dl Calcium 8.8 (8.6-10.3) mg/dl Intake and Output 09/04/24 09/05/24 09/05/24 22:59 06:59 14:59 Intake Total 420.917 / 2230.000 529.083 / 2230.000 176 / 176 Output Total Balance 419.917 / 2229.000 529.083 / 2229.000 176 / 176 Intake: IV 170.917 / 1050.000 329.083 / 1050.000 176 / 176 Heparin Sodium/Dextrose 25,000 170.917 / 1000.000 329.083 / 1000.000 126 / 126 units In 500 ml @ 1,750 UNITS/ HR 35 mls/hr IV .[id number] [facility] Rx #:[id number] cefTRIAXone SODIUM 2,000 mg In 50 / 50 50 ml @ 100 mls/hr IV Q24H [facility] Rx#:[id number] Oral 250 / 1180 200 / 1180 Output: # Bowel Movements Other: # Unmeasured Voids 2 2 Weight 102.3 kg Weight Measurement Method Built in [facility] Diagnostic Findings Telemetry reviewed: Persistent atrial flutter with RVR. HR ranging 100-120's. Medications Administered Current Inpatient Medications Acetaminophen (Acetaminophen 325 Mg Tab) 650 mg PO Q4H PRN PRN Reason: Pain or Fever Stop: 10/02/24 15:53 Last Admin: 09/03/24 18:27 Dose: 650 mg Aspirin (Aspirin 81 Mg Ectab) 81 mg PO QAM [facility] Stop: 10/03/24 08:59 Last Admin: 09/05/24 08:31 Dose: 81 mg Atorvastatin Calcium (Atorvastatin 40 Mg Tab) 40 mg PO [facility] Stop: 10/02/24 13:29 Last Admin: 09/05/24 08:31 Dose: 40 mg Azithromycin (Azithromycin 250 Mg Tab) 500 mg PO [facility] Stop: 09/08/24 08:59 Last Admin: 09/05/24 08:31 Dose: 500 mg Digoxin (Digoxin 0.125 Mg Tab) 0.125 mg PO DAILY@1600 [facility] Stop: 10/05/24 15:59 Guaifenesin/Dextromethorphan (Guaifenesin/Dextrom Syrup 200mg/20mg 10ml Udc) 10 ml PO Q6H PRN PRN Reason: Cough Stop: 10/04/24 08:06 Last Admin: 09/05/24 08:30 Dose: 10 ml Heparin Sodium/Dextrose (Heparin Sodium/Dextrose) 25,000 units in 500 mls @ 35 mls/hr IV .[id number] [facility]; Protocol Stop: 10/02/24 14:29 Last Titration: 09/05/24 08:27 Dose: 1,750 units/hr, 35 mls/hr Ceftriaxone Sodium (Rocephin) 2,000 mg in 50 mls @ 100 mls/hr IV Q24H [facility]; Protocol Stop: 09/08/24 11:59 Last Infusion: 09/05/24 12:01 Dose: Infused Losartan Potassium (Losartan Potassium 25 Mg Tab) 12.5 mg PO [facility] Stop: 10/05/24 08:59 Last Admin: 09/05/24 08:31 Dose: 12.5 mg Metoprolol Succinate (Metoprolol Succ 25mg Ext Rel Tab) 75 mg PO BID [facility] Stop: 10/04/24 20:59 Last Admin: 09/05/24 08:30 Dose: 75 mg Ondansetron HCl (Ondansetron Inj 2 Mg/Ml 2 Ml Vial) 4 mg IV Q6H PRN PRN Reason: Nausea Stop: 10/02/24 15:53 Polyethylene Glycol (Polyethylene (Miralax) 17 Gm Pack) 17 gm PO DAILY PRN PRN Reason: Constipation Stop: 10/02/24 15:53 (4) CAP (community acquired pneumonia) Laterality: right Lung location: lower lobe of lung Qualified Code(s): J18.9 - Pneumonia, unspecified organism
[2024-09-05] MEDS: METOPROLOL SUCC 25MG EXT REL TAB PO ONE (15:03)
[2024-09-05] MEDS: DIGOXIN 0.125 MG TAB PO SCH (15:03)
[2024-09-05] MEDS ORDERED: METOPROLOL SUCC 50MG EXT REL TAB PO SCH (21:00)
--- NOTE | 2024-09-06 06:38 | Electrocardiogram Report ---
Test Reason : Blood Pressure : */* mmHG Vent. Rate : 109 BPM Atrial Rate : 256 BPM P-R Int : * ms QRS Dur : 126 ms QT Int : 316 ms P-R-T Axes : -75 -65 62 degrees QTcB Int : 425 ms Atrial flutter with variable A-V block Right bundle branch block Left anterior fascicular block Bifascicular block Abnormal ECG When compared with ECG of 02-Sep-2024 11:10, No significant change Confirmed by Ghulam Fermin ([id number] on 09/06/2024 6:38:10 AM Referred By: REFERRED SELF Confirmed By: Ghulam Fermin
[2024-09-06 06:41] LABS: ANTI-Xa, UFH(UnfractionatedHep 0.38 IU/ml (0.3-0.7)
--- NOTE | 2024-09-06 12:33 | Anesthesiology Consultation ---
Date of Service September 06, 2024 Assessment & Plan (1) Encounter for pre-operative examination: Chart Review Chart Review: Acceptable Risk for Surgery and Patient NOT seen in Pre Admission Testing Consults Requested none History Surgery Operation Date: 09/06/24 13:00 Proposed Procedures p Cardioversion w/Anesthesia Sedation - Sung Kim DO p Transesophageal Echo w/Anesthesia - Sung Kim DO Height/Weight Height: 5 ft 10 in Weight: 98.5 kg Allergies Allergy/AdvReac Type Severity Reaction Status Date / Time No Known Allergies Allergy Verified 09/02/24 14:40 Medications Home Medications Medication Instructions Recorded Confirmed Last Taken atorvastatin 40 mg tablet 40 mg PO PM 09/02/24 09/02/24 Unknown folic acid 1 mg tablet 1 mg PO DAILY 09/02/24 09/02/24 Unknown methotrexate sodium 2.5 mg tablet 15 mg PO WK 09/02/24 09/02/24 Unknown Active Medications Generic Name Dose Route Start Last Admin Trade Name Freq PRN Reason Stop Dose Admin Acetaminophen 650 mg 09/02/24 15:54 09/03/24 18:27 Acetaminophen 325 Mg Tab PO 10/02/24 15:53 650 mg Q4H PRN Administration Pain or Fever Aspirin 81 mg 09/03/24 09:00 09/06/24 07:53 Aspirin 81 Mg Ectab PO 10/03/24 08:59 81 mg QAM ANTHONY Administration Atorvastatin Calcium 40 mg 09/02/24 13:30 09/06/24 07:53 Atorvastatin 40 Mg Tab PO 10/02/24 13:29 40 mg QAM ANTHONY Administration Azithromycin 500 mg 09/03/24 09:00 09/06/24 07:52 Azithromycin 250 Mg Tab PO 09/08/24 08:59 500 mg QAM ANTHONY Administration Digoxin 0.125 mg 09/05/24 16:00 09/05/24 15:03 Digoxin 0.125 Mg Tab PO 10/05/24 15:59 0.125 mg DAILY@1600 ANTHONY Administration Guaifenesin/Dextromethorphan 10 ml 09/04/24 08:07 09/05/24 08:30 Guaifenesin/Dextrom Syrup 200mg/20mg 10ml Udc PO 10/04/24 08:06 10 ml Q6H PRN Administration Cough Heparin Sodium/Dextrose 25,000 units in 500 mls @ 35 mls/hr 09/02/24 14:30 09/06/24 11:30 Heparin Sodium/Dextrose IV 10/02/24 14:29 1,750 units/hr .[id number] ANTHONY 35 mls/hr Administration Protocol 1,750 UNITS/HR Ceftriaxone Sodium 2,000 mg in 50 mls @ 100 mls/hr 09/03/24 12:00 09/06/24 12:00 Rocephin IV 09/08/24 11:59 Infused Q24H ANTHONY Infusion Protocol Losartan Potassium 12.5 mg 09/05/24 09:00 09/06/24 07:53 Losartan Potassium 25 Mg Tab PO 10/05/24 08:59 12.5 mg QAM ANTHONY Administration Social History Smoking Status: Former smoker Hx Alcohol Use: No Hx Substance Use: No Physical Exam Vital Signs Last Vital Signs Temp 98.4 F 09/06/24 08:12 Pulse 70 09/06/24 08:39 Resp 19 09/06/24 08:12 BP 99/86 L 09/06/24 08:12 Pulse Ox 95 09/06/24 08:12 O2 Del Method Room Air 09/06/24 08:39 O2 Flow Rate 2 09/03/24 08:00 Testing Laboratory Results 09/04/24 05:49 09/05/24 06:26 PT 11.7 Seconds (9.0-12.0) 09/02/24 11:15 INR 1.1 (0.9-1.1) 09/02/24 11:15 APTT 40 Seconds (21-31) H 09/03/24 06:28 Hemoglobin A1c 5.6 % (4.5-5.6) 09/02/24 11:15 09/02/24 11:51 Aerobic Blood Culture - Preliminary Blood No growth in Aerobic bottle after 48 hours. Anaerobic Blood Culture - Preliminary No growth in Anaerobic bottle after 48 hours. 09/02/24 11:30 Aerobic Blood Culture - Preliminary Blood No growth in Aerobic bottle after 48 hours. Anaerobic Blood Culture - Preliminary No growth in Anaerobic bottle after 48 hours. Electrocardiogram Date: 09/05/24 atrial flutter with variable AV block RBBB LAFB Echocardiogram Date: 09/05/24 EF: 45-50% RWMA: + hypokinetic (mild global) PASP 52 mmHg
--- NOTE | 2024-09-06 12:48 | Cardiology Progress Note ---
Date of Service September 06, 2024 Assessment & Plan (1) Acute heart failure with mildly reduced ejection fraction (HFmrEF, 41-49%): (2) Atrial flutter by electrocardiogram: (3) Demand ischemia: (4) CAP (community acquired pneumonia): Plan 09/04/[address] Hyman 69 year old [place] of [place], who has lived in [place] x 20 years. 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 Echocardiogram reveals borderline to mild diffuse left ventricular hypokinesis LVEF in the range of 45-50%. Patient is felt poorly for the last 3 weeks. Suspect he has developed underlying pneumonia and superimposed atrial fibrillation/flutter with left ventricular systolic dysfunction and heart failure that may be tachycardia induced. BNP screening minimally elevated 239 PG per mL. Serial mild elevation in high sensitive troponin (flat trend) 128.9--> 139 -->122--> 131.2 PG per * Increase metoprolol to succinate to 75 mg twice daily * Add digoxin * furosemide 20 mg IV x1 now, KCL 20 Meq PO x 1. * Start low dose losartan 09/05 . * Legionella antigen pending * Continue heparin infusion for stroke prophylaxis pending Determination with regards to need for invasive procedures during hospital stay. 09/05/24: Patient remains in persistent atrial flutter RVR despite ongoing med titration (metoprolol increased to 75 mg BID and dig added yesterday) Increase metoprolol to 100 mg BID. Continue digoxin. Continue IV heparin and transition to oral Eliquis 5 mg BID prior to discharge. Once respiratory status has improved, if HR's remain elevated, may need to consider KAVITA/CV to restore NSR. Continue ASA, statin, losartan. Treatment for sepsis, CAP per hospitalist. Blood cultures remain negative. Continue antibiotics. 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 He reports friends will be coming to help drive him and his truck home. He will not be driving home. 09/06/23: Patient currently NPO for planned KAVITA/CV later this morning. Late yesterday afternoon he had 3 second pause on telemetry. No symptoms. Last evening and this morning metoprolol held. Variable rates ranging 80-130's. BP borderline low. Will avoid additional doses of metoprolol for now until cardioversion completed. Continue digoxin for now. Will re-evaluate AV yves blocking agents post cardioversion. Otherwise continue ASA, statin, losartan. LVEF 45-50%, likely tachy induced. Would consider outpatient nuclear stress test upon discharge. He lives in [place] and will need to follow up with cardiology upon discharge. Case discussed with Dr. Kim I spent a total of 40 minutes on the date of service in preparation, delivery, and documentation of the care provided to this patient, excluding any time spent in the performance of separately billed services. Esthela Berumen PA-C Department of Cardiology, [facility] This chart was completed in part utilizing Speech Voice Recognition Software. Grammatical errors, random word insertions, pronoun errors, and incomplete sentences are an occasional consequence of this system due to software limitations, ambient noise, and hardware issues. Any formal questions or concerns about the content, text, or information contained within the body of this dictation should be directly addressed to the provider for clarification. Admission and Anticipated Discharge Date Admission Date: September 02, 2024 Supervising Physician Co-Signing Physician Notes I have personally performed a history and physical examination on the patient. I have reviewed the advance practitioner's documentation, and I agree with, and take responsibility for the plan of care. 69-year-old male admitted with community-acquired pneumonia, atrial flutter with rapid ventricular response, mildly elevated troponin secondary to demand ischemia, and mild LV systolic dysfunction with heart failure. Asymptomatic 3.2-second pause recorded in the evening 09/05/2024. Toprol-XL placed on hold. No recurrent bradycardia or pauses overnight. Recommend transesophageal echo guided direct-current cardioversion. Risk, benefits, alternatives to procedure reviewed. Patient agreeable to proceed. I spent a total of 25 minutes on the date of service in preparation, delivery, and documentation of the care provided to this patient, excluding any time spent in the performance of separately billed services. Sung Kim DO, [facility] Subjective Patient resting in bed comfortably. Reports his SOB has greatly improved. Still notes elevated HR's with minimal exertion and "pounding" sensation in his chest. HR remain variable rangingn 80-130's with persistent atrial flutter. Had 1 3 second pause late yesterday and metoprolol on hold. No recurrent pauses. No symptoms of dizziness or lightheadedness. Review of Systems Review of Systems: All systems reviewed & are unremarkable except as noted in HPI & below Physical Exam Physical Exam: General: no acute distress and stated age Eyes: conjunctiva are pink and non-injected, sclera clear Neck: normal jugular venous pulse, no hepatojugular reflux Chest: normal shape and normal respiratory effort Lungs: Coarse breath sounds noted throughout the mid lung dominguez Cardiac Exam: Irregular rhythm, tachycardic, no murmurs Abdomen: abdomen soft, non-tender, no abnormal masses and no hepatosplenomegaly Musculoskeletal: no gait disturbance, no weakness Extremities: no edema and no cyanosis Neuro:awake, conversant, follows commands, no focal motor deficits Psych: appropriate affect and insight. Results & Data Vital Signs (Past 12 Hours) Vital Signs Temp Pulse Pulse Resp BP Pulse Ox O2 Del Method 09/06/24 08:39 70 09/06/24 08:39 Room Air 09/06/24 08:12 36.9 C 130 H 19 99/86 L 95 Room Air 09/06/24 03:00 36.4 C L 128 H 16 111/81 96 Room Air Laboratory Results Intake and Output 09/05/24 09/06/24 09/06/24 22:59 06:59 14:59 Intake Total 374 / 1110 550.000 / 550.000 Balance 374 / 1110 550.000 / 550.000 Intake: IV 374 / 550 550.000 / 550.000 Heparin Sodium/Dextrose 25,000 374 / 500 500.000 / 500.000 units In 500 ml @ 1,750 UNITS/ HR 35 mls/hr IV .[id number] [facility] Rx #:[id number] cefTRIAXone SODIUM 2,000 mg In 50 / 50 50 ml @ 100 mls/hr IV Q24H [facility] Rx#:[id number] Other: # Unmeasured Voids 1 1 Weight 98.5 kg 98.5 kg Weight Measurement Method Standing Scale Patient Weight 09/07/24 06:59 Weight 98.5 kg Diagnostic Findings Telemetry reviewed: Atrial flutter with variable rates ranging 80-130 Medications Administered Current Inpatient Medications Acetaminophen (Acetaminophen 325 Mg Tab) 650 mg PO Q4H PRN PRN Reason: Pain or Fever Stop: 10/02/24 15:53 Last Admin: 09/03/24 18:27 Dose: 650 mg Aspirin (Aspirin 81 Mg Ectab) 81 mg PO QAM [facility] Stop: 10/03/24 08:59 Last Admin: 09/06/24 07:53 Dose: 81 mg Atorvastatin Calcium (Atorvastatin 40 Mg Tab) 40 mg PO [facility] Stop: 10/02/24 13:29 Last Admin: 09/06/24 07:53 Dose: 40 mg Azithromycin (Azithromycin 250 Mg Tab) 500 mg PO [facility] Stop: 09/08/24 08:59 Last Admin: 09/06/24 07:52 Dose: 500 mg Digoxin (Digoxin 0.125 Mg Tab) 0.125 mg PO DAILY@1600 [facility] Stop: 10/05/24 15:59 Last Admin: 09/05/24 15:03 Dose: 0.125 mg Guaifenesin/Dextromethorphan (Guaifenesin/Dextrom Syrup 200mg/20mg 10ml Udc) 10 ml PO Q6H PRN PRN Reason: Cough Stop: 10/04/24 08:06 Last Admin: 09/05/24 08:30 Dose: 10 ml Heparin Sodium/Dextrose (Heparin Sodium/Dextrose) 25,000 units in 500 mls @ 35 mls/hr IV .[id number] [facility]; Protocol Stop: 10/02/24 14:29 Last Admin: 09/06/24 11:30 Dose: 1,750 units/hr, 35 mls/hr Ceftriaxone Sodium (Rocephin) 2,000 mg in 50 mls @ 100 mls/hr IV Q24H [facility]; Protocol Stop: 09/08/24 11:59 Last Infusion: 09/06/24 12:00 Dose: Infused Losartan Potassium (Losartan Potassium 25 Mg Tab) 12.5 mg PO [facility] Stop: 10/05/24 08:59 Last Admin: 09/06/24 07:53 Dose: 12.5 mg Metoprolol Succinate (Metoprolol Succ 50mg Ext Rel Tab) 100 mg PO BID [facility] Stop: 10/05/24 20:59 Ondansetron HCl (Ondansetron Inj 2 Mg/Ml 2 Ml Vial) 4 mg IV Q6H PRN PRN Reason: Nausea Stop: 10/02/24 15:53 Polyethylene Glycol (Polyethylene (Miralax) 17 Gm Pack) 17 gm PO DAILY PRN PRN Reason: Constipation Stop: 10/02/24 15:53 (4) CAP (community acquired pneumonia) Laterality: right Lung location: lower lobe of lung Qualified Code(s): J18.9 - Pneumonia, unspecified organism
--- NOTE | 2024-09-06 13:39 | Hospitalist Progress Note ---
Date of Service September 06, 2024 Assessment & Plan (1) Sepsis: Plan: -qualified by tachycardia and leukocytosis secondary to community-acquired pneumonia Plan: -order blood cultures x2, sputum culture - has been getting intravenous ceftriaxone and azithromycin orally -check MRSA - negative He has been feeling little better blood cultures have been negative and he has been feeling better Remains afebrile and white count has reverted to normal Will finish antibiotic course of 7 to 10 days with Keflex and azithromycin course will be done in the next 2 days Clinically much better and will get PT and OT eval patient Remains medically stable without any fever and/or chills but still has some cough (2) CAP (community acquired pneumonia): Plan: -clinical diagnosis based on fever and cough, albeit unproductive -procal is negative, viral workup is negative -differential includes HF exaccerbation (possible but does not appear severely fluid overloaded), methotrexate induced pneumonitis (possible), less likely PE (given imaging findings), sarcoidosis (possible but less likely) Plan: -check BNP, f/u next troponin, consult rheumatology given concern for methotrexate induced pneumonitis if no improvement with abx -stop fluids for now given does not appear volume down -continue azithromycin/ceftriaxone x5-7 days -check legionella antigen-no Legionella antigen today PT OT evaluation (3) NSTEMI, initial episode of care: Plan: -likely in setting of new onset atrial flutter, likely 3 weeks ago -not on anticoagulation, [id number] score of 3 meaning anticoagulation is indicated Plan: echo of the heart showed mild diffuse left ventricular hypokinesis with LVEF of 45 to 50% - troponins mildly elevated and the patient has been getting intravenous heparin until it is clear that he will not need for any intervention appreciate cardiology input and recommendation Denies any chest pain and/or palpitation and is still getting intravenous heparin -No cardiac symptoms and the heart rate seems to be controlled (4) Atrial flutter by electrocardiogram: Plan: -new onset, likely 3 weeks ago when chest pressure began -hemodynamically stable Plan: -cardiology consult, appreciate recs -check A1c- 5.6, lipids- noted, TSH for risk - normal at 0.543 -given 5mg IV metoprolol now, start 12.5 mg q6hrs scheduled PO loppressor for rate control - remains tachycardic and Cardizem drip has been discontinued Continues to have tachycardia especially when ambulance and that goes up to upper 120s -Will need oral anticoagulation on discharge - beta-osvaldo is on hold due to 1 episode of around 3 seconds pause yesterday -Still having tachycardia at times and will have elective cardioversion today (5) Rheumatoid arthritis in remission: Plan: -on methotrexate -joint pain well controlled however given imaging findings and fever lower on differential but possible would be methotrexate induced pneumonitis Plan: -watchstander clinical response, if not feeling better over next few days consult rheumatology for consideration of steroids and further workup -hold methotrexate for now - no acute arthritis involving any of the joint No acute arthritis involving any of the joint- (6) BPH (benign prostatic hyperplasia): Plan: -not taking prescribed flomax (7) On methotrexate therapy: Plan: -see above Plan DVT prophylaxis -on intravenous heparin CODE STATUS full Admission and Anticipated Discharge Date Admission Date: September 02, 2024 Subjective 09/03/2024 The patient was seen and examined in telemetry unit She has been complaining of shortness of breath and weakness with cough Denies any chest pain and/or palpitation 09/04/2024 The patient was seen and examined in telemetry unit He complains today of some cough with associated pain involving bilateral lower chest wall He has had questionable blood in the sputum but I have not noticed that Denies any fever and/or chills but his heart rate is remain high especially when ambulance at around 120s 09/05/2024 The patient was seen and examined in telemetry unit He has been much better today Cough has decreased and no more hemoptysis Heart rate remains elevated but better than yesterday and denies any cardiac symptoms 09/06/2024 The patient was seen and examined in telemetry unit He has been feeling much better with minimal cough and occasional hemoptysis Remains tachycardic and will have elective cardioversion sometime today Review of Systems Review of Systems: All systems reviewed and are unremarkable except as noted below Physical Exam Physical Exam: Lying in bed without any acute distress Constitutional: well developed, well nourished, + ill appearing and + obese Eyes: PERRL, conjunctivae normal, anicteric sclerae ENMT: external ear and nose normal, oropharynx normal Neck: trachea midline, no thyromegaly Respiratory: + respiratory distress ( minimal distres s at rest) Auscultation: + diminished lung sounds and + crackles ( minimal crackles at the bases) Cardiovascular: Rate/Rhythm: regular rate, regular rhythm and + tachycardic Heart Sounds: normal S1 and normal S2; no murmur Extremities: + edema Gastrointestinal (Abdomen): Inspection/Auscultation: normal bowel sounds; abdomen not distended Percussion/Palpation: abdomen soft; abdomen nontender Neurologic: normal touch/pain/proprioception and moves all extremities; no focal motor deficits Lymphatic: no cervical or axillary lymphadenopathy Results & Data Results & Data Vital Signs (Past 12 Hours) Vital Signs Temp Pulse Pulse Resp BP Pulse Ox O2 Del Method 09/06/24 08:39 70 09/06/24 08:39 Room Air 09/06/24 08:12 36.9 C 130 H 19 99/86 L 95 Room Air 09/06/24 03:00 36.4 C L 128 H 16 111/81 96 Room Air Medications Administered Current Inpatient Medications Acetaminophen (Acetaminophen 325 Mg Tab) 650 mg PO Q4H PRN PRN Reason: Pain or Fever Stop: 10/02/24 15:53 Last Admin: 09/03/24 18:27 Dose: 650 mg Aspirin (Aspirin 81 Mg Ectab) 81 mg PO [facility] Stop: 10/03/24 08:59 Last Admin: 09/06/24 07:53 Dose: 81 mg Atorvastatin Calcium (Atorvastatin 40 Mg Tab) 40 mg PO [facility] Stop: 10/02/24 13:29 Last Admin: 09/06/24 07:53 Dose: 40 mg Azithromycin (Azithromycin 250 Mg Tab) 500 mg PO [facility] Stop: 09/08/24 08:59 Last Admin: 09/06/24 07:52 Dose: 500 mg Digoxin (Digoxin 0.125 Mg Tab) 0.125 mg PO DAILY@1600 [facility] Stop: 10/05/24 15:59 Last Admin: 09/05/24 15:03 Dose: 0.125 mg Guaifenesin/Dextromethorphan (Guaifenesin/Dextrom Syrup 200mg/20mg 10ml Udc) 10 ml PO Q6H PRN PRN Reason: Cough Stop: 10/04/24 08:06 Last Admin: 09/05/24 08:30 Dose: 10 ml Heparin Sodium/Dextrose (Heparin Sodium/Dextrose) 25,000 units in 500 mls @ 35 mls/hr IV .[id number] [facility]; Protocol Stop: 10/02/24 14:29 Last Admin: 09/06/24 11:30 Dose: 1,750 units/hr, 35 mls/hr Ceftriaxone Sodium (Rocephin) 2,000 mg in 50 mls @ 100 mls/hr IV Q24H [facility]; Protocol Stop: 09/08/24 11:59 Last Infusion: 09/06/24 12:00 Dose: Infused Losartan Potassium (Losartan Potassium 25 Mg Tab) 12.5 mg PO QAM [facility] Stop: 10/05/24 08:59 Last Admin: 09/06/24 07:53 Dose: 12.5 mg Metoprolol Succinate (Metoprolol Succ 50mg Ext Rel Tab) 100 mg PO BID [facility] Stop: 10/05/24 20:59 Ondansetron HCl (Ondansetron Inj 2 Mg/Ml 2 Ml Vial) 4 mg IV Q6H PRN PRN Reason: Nausea Stop: 10/02/24 15:53 Polyethylene Glycol (Polyethylene (Miralax) 17 Gm Pack) 17 gm PO DAILY PRN PRN Reason: Constipation Stop: 10/02/24 15:53 (1) Sepsis Sepsis type: sepsis due to unspecified organism Sepsis acute organ dysfunction status: unspecified Qualified Code(s): A41.9 - Sepsis, unspecified organism (2) CAP (community acquired pneumonia) Laterality: right Lung location: lower lobe of lung Qualified Code(s): J18.9 - Pneumonia, unspecified organism (6) BPH (benign prostatic hyperplasia) Lower urinary tract symptom presence: symptoms present Lower urinary tract symptom detail: urinary frequency Qualified Code(s): N40.1 - Benign prostatic hyperplasia with lower urinary tract symptoms; R35.0 - Frequency of micturition
[2024-09-06] MEDS ORDERED: LIDOCAINE 2% 2 ML VIAL/AMP(20MG/ML) INFIL ONE (14:04)
[2024-09-06] MEDS ORDERED: PROPOFOL IV EMULSION 10 MG/ML 20 ML VIAL IV ONE (14:04)
--- NOTE | 2024-09-06 14:13 | Cardioversion ---
Date of Service September 06, 2024 Electrical Cardioversion Rpt Electrical Cardioversion Report Indication: Atrial flutter with rapid ventricular response, mild left ventricular systolic dysfunction. Complications: None. Estimated blood loss: 0 cc. Anesthesia: Conscious sedation provided by the anesthesia service with propofol. Please see separate report Procedural summary: Patient brought to PACU in a fasting state. Transesophageal echocardiogram was performed prior to cardioversion. No evidence of left atrial appendage thrombus. Please see separate report. Defibrillator placed in anterior and posterior position. While patient adequately sedated, the defibrillator was synced to the QRS complex. A single 150 J biphasic shock delivered. Patient successfully converted from atrial flutter to normal sinus rhythm at 70 bpm. Tolerated procedure well. Conclusion: Successful external direct-current cardioversion from atrial flutter to normal sinus rhythm with 150 J.
--- NOTE | 2024-09-06 14:33 | Anesthesiology Progress Note ---
Date of Service September 06, 2024 Anesthesia Post Procedure Vital Signs Vital Signs: Temp Pulse Pulse Resp BP BP Pulse Ox 09/06/24 14:15 36.6 C 79 14 107/76 93 09/06/24 13:34 36.6 C 14 L 14 96/73 L 94 09/06/24 08:39 70 09/06/24 08:39 09/06/24 08:12 36.9 C 130 H 19 99/86 L 95 09/06/24 03:00 36.4 C L 128 H 16 111/81 96 09/05/24 23:02 36.7 C 125 H 18 118/82 94 09/05/24 20:59 09/05/24 19:33 36.4 C L 129 H 18 108/79 95 09/05/24 15:17 36.4 C L 123 H 18 121/96 95 09/05/24 15:03 128 H O2 Del Method 09/06/24 14:15 Room Air 09/06/24 13:34 Room Air 09/06/24 08:39 09/06/24 08:39 Room Air 09/06/24 08:12 Room Air 09/06/24 03:00 Room Air 09/05/24 23:02 Room Air 09/05/24 20:59 Room Air 09/05/24 19:33 Room Air 09/05/24 15:17 Room Air 09/05/24 15:03 Pain Intensity Chest: Pain Intensity: 3 Transfer of Care Handoff Completed per policy Notes Mental Status: alert / awake / arousable and participated in evaluation Patient Amnestic to Procedure: Yes Nausea / Vomiting: adequately controlled Pain: adequately controlled Airway Patency, RR, SpO2: stable & adequate BP & HR: stable & adequate Hydration State: stable & adequate Anesthetic Complications: no major complications apparent
[2024-09-06] MEDS: BENZOCAINE/TETRACAIN/BUTAM 50 APPLN/5 GM CAN EXT ONE (14:51)
[2024-09-07 07:03] LABS: ANTI-Xa, UFH(UnfractionatedHep 0.45 IU/ml (0.3-0.7)
[2024-09-07] MEDS: METOPROLOL SUCC 25MG EXT REL TAB PO SCH (09:51)
--- NOTE | 2024-09-07 13:26 | Cardiology Progress Note ---
Date of Service September 07, 2024 Assessment & Plan (1) Acute heart failure with mildly reduced ejection fraction (HFmrEF, 41-49%): (2) Atrial flutter by electrocardiogram: (3) Demand ischemia: (4) CAP (community acquired pneumonia): Plan 09/04/[address] Hyman 69 year old [place] of [place], who has lived in [place] x 20 years. 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 Echocardiogram reveals borderline to mild diffuse left ventricular hypokinesis LVEF in the range of 45-50%. Patient is felt poorly for the last 3 weeks. Suspect he has developed underlying pneumonia and superimposed atrial fibrillation/flutter with left ventricular systolic dysfunction and heart failure that may be tachycardia induced. BNP screening minimally elevated 239 PG per mL. Serial mild elevation in high sensitive troponin (flat trend) 128.9--> 139 -->122--> 131.2 PG per * Increase metoprolol to succinate to 75 mg twice daily * Add digoxin * furosemide 20 mg IV x1 now, KCL 20 Meq PO x 1. * Start low dose losartan 09/05 . * Legionella antigen pending * Continue heparin infusion for stroke prophylaxis pending Determination with regards to need for invasive procedures during hospital stay. 09/05/24: Patient remains in persistent atrial flutter RVR despite ongoing med titration (metoprolol increased to 75 mg BID and dig added yesterday) Increase metoprolol to 100 mg BID. Continue digoxin. Continue IV heparin and transition to oral Eliquis 5 mg BID prior to discharge. Once respiratory status has improved, if HR's remain elevated, may need to consider KAVITA/CV to restore NSR. Continue ASA, statin, losartan. Treatment for sepsis, CAP per hospitalist. Blood cultures remain negative. Continue antibiotics. 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 He reports friends will be coming to help drive him and his truck home. He will not be driving home. 09/06/24: Patient currently NPO for planned KAVITA/CV later this morning. Late yesterday afternoon he had 3 second pause on telemetry. No symptoms. Last evening and this morning metoprolol held. Variable rates ranging 80-130's. BP borderline low. Will avoid additional doses of metoprolol for now until cardioversion completed. Continue digoxin for now. Will re-evaluate AV yves blocking agents post cardioversion. Otherwise continue ASA, statin, losartan. LVEF 45-50%, likely tachy induced. Would consider outpatient nuclear stress test upon discharge. He lives in [place] and will need to follow up with cardiology upon discharge. 09/07/24: Successful KAVITA/CV yesterday. No LA thrombus Converted to NSR and no recurrent afib overnight. Continue metoprolol succinate 25 mg BID transition from IV heparin to Eliquis 5 mg BID. Discussed medication management with human services case manager. Will need to verify affordability with his insurance Will also need to make sure he is able to get mediations and prescriptions for his travel home. Given mildly reduced LVEF, continue GDMT including metoprolol and losartan. May be candidate for Entresto, but will defer to cardiology team when he returns home and based on insurance. Will likely need nuclear stress test as well as outpatient. continue ASA and statin Anticipate discharge in the next 1-2 days when his family is able to get here. Case discussed with Dr. Kim I spent a total of 30 minutes on the date of service in preparation, delivery, and documentation of the care provided to this patient, excluding any time spent in the performance of separately billed services. Esthela Berumen PA-C Department of Cardiology, [facility] This chart was completed in part utilizing Speech Voice Recognition Software. Grammatical errors, random word insertions, pronoun errors, and incomplete sentences are an occasional consequence of this system due to software limitations, ambient noise, and hardware issues. Any formal questions or concerns about the content, text, or information contained within the body of this dictation should be directly addressed to the provider for clarification. Admission and Anticipated Discharge Date Admission Date: September 02, 2024 Supervising Physician Co-Signing Physician Notes I have personally performed a history and physical examination on the patient. I have reviewed the advance practitioner's documentation, and I agree with, and take responsibility for the plan of care. 69-year-old male admitted with community-acquired pneumonia, atrial flutter with rapid ventricular response, mildly elevated troponin secondary to demand ischemia, and mild LV systolic dysfunction with heart failure. Transesophageal echocardiogram guided cardioversion performed 09/06/2024. Patient remains in sinus rhythm. Recommendations: Continue beta-osvaldo, losartan, and Eliquis. No further inpatient cardiac testing or intervention recommended at this time as inpatient. Repeat resting 2D transthoracic echocardiogram in 3 months for reassessment of LV function. Outpatient pharmacologic stress testing. Patient will follow-up with sales service coordinator in [place]. I spent a total of 30 minutes on the date of service in preparation, delivery, and documentation of the care provided to this patient, excluding any time spent in the performance of separately billed services. Sung Kim DO, [facility] Subjective Patient feeling well this morning. SOB improved. Breathing back to "normal" per patient. No palpitations or tachypalpitations. Tolerated KAVITA/DC yesterday and remains in NSR. He reports his family and friend will be here tomorrow to help get him and his truck home. He may also fly. Review of Systems Review of Systems: All systems reviewed & are unremarkable except as noted in HPI & below Physical Exam Physical Exam: General: no acute distress and stated age Eyes: conjunctiva are pink and non-injected, sclera clear Neck: normal jugular venous pulse, no hepatojugular reflux Chest: normal shape and normal respiratory effort Lungs: Coarse breath sounds noted throughout the mid lung dominguez Cardiac Exam: Regular rate and rhythm. no murmurs Abdomen: abdomen soft, non-tender, no abnormal masses and no hepatosplenomegaly Musculoskeletal: no gait disturbance, no weakness Extremities: no edema and no cyanosis Neuro:awake, conversant, follows commands, no focal motor deficits Psych: appropriate affect and insight. Results & Data Vital Signs (Past 12 Hours) Vital Signs Temp Pulse Pulse Resp BP Pulse Ox O2 Del Method 09/07/24 10:40 36.3 C L 70 16 114/72 95 Room Air 09/07/24 07:59 72 09/07/24 07:43 76 17 113/75 92 Room Air 09/07/24 03:56 36.5 C 80 18 110/72 91 Room Air Laboratory Results Intake and Output 09/06/24 09/07/24 09/07/24 22:59 06:59 14:59 Intake Total 698.75 / 1650.000 348.75 / 1650.000 127.167 / 127.167 Balance 698.75 / 1650.000 348.75 / 1650.000 127.167 / 127.167 Intake: IV 148.75 / 1050.000 298.75 / 1050.000 127.167 / 127.167 Heparin Sodium/Dextrose 25,000 148.75 / 1000.000 298.75 / 1000.000 127.167 / 127.167 units In 500 ml @ 1,750 UNITS/ HR 35 mls/hr IV .[id number] [facility] Rx #:[id number] Oral 550 / 600 50 / 600 Other: # Unmeasured Voids 1 1 Weight 98.6 kg Weight Measurement Method Built in [facility] Diagnostic Findings Telemetry reviewed: NSR in the 70-80's. No recurrent atrial fibrillation KAVITA report reviewed from yesterday, 09/06/24: LV systolic function is mild to moderately reduced LVEF 40-45% Moderate global hypokinesis No thrombus detected in the LA appendage Mild MR Mild TR No pulm hypertension Medications Administered Current Inpatient Medications Acetaminophen (Acetaminophen 325 Mg Tab) 650 mg PO Q4H PRN PRN Reason: Pain or Fever Stop: 10/02/24 15:53 Last Admin: 09/03/24 18:27 Dose: 650 mg Aspirin (Aspirin 81 Mg Ectab) [address] [facility] Stop: 10/03/24 08:59 Last Admin: 09/07/24 09:50 Dose: 81 mg Atorvastatin Calcium (Atorvastatin 40 Mg Tab) [address] [facility] Stop: 10/02/24 13:29 Last Admin: 09/07/24 09:51 Dose: 40 mg Azithromycin (Azithromycin 250 Mg Tab) [address] [facility] Stop: 09/08/24 08:59 Last Admin: 09/07/24 09:51 Dose: 500 mg Guaifenesin/Dextromethorphan (Guaifenesin/Dextrom Syrup 200mg/20mg 10ml Udc) 10 ml PO Q6H PRN PRN Reason: Cough Stop: 10/04/24 08:06 Last Admin: 09/05/24 08:30 Dose: 10 ml Heparin Sodium/Dextrose (Heparin Sodium/Dextrose) 25,000 units in 500 mls @ 35 mls/hr IV .[id number] [facility]; Protocol Stop: 10/02/24 14:29 Last Titration: 09/07/24 07:17 Dose: 1,750 units/hr, 35 mls/hr Ceftriaxone Sodium (Rocephin) 2,000 mg in 50 mls @ 100 mls/hr IV Q24H [facility]; Protocol Stop: 09/08/24 11:59 Last Admin: 09/07/24 13:20 Dose: 100 mls/hr Losartan Potassium (Losartan Potassium 25 Mg Tab) 12.5 mg PO QAM [facility] Stop: 10/05/24 08:59 Last Admin: 09/07/24 09:51 Dose: 12.5 mg Metoprolol Succinate (Metoprolol Succ 25mg Ext Rel Tab) 25 mg PO BID [facility] Stop: 10/07/24 08:59 Last Admin: 09/07/24 09:51 Dose: 25 mg Ondansetron HCl (Ondansetron Inj 2 Mg/Ml 2 Ml Vial) 4 mg IV Q6H PRN PRN Reason: Nausea Stop: 10/02/24 15:53 Polyethylene Glycol (Polyethylene (Miralax) 17 Gm Pack) 17 gm PO DAILY PRN PRN Reason: Constipation Stop: 10/02/24 15:53 (4) CAP (community acquired pneumonia) Laterality: right Lung location: lower lobe of lung Qualified Code(s): J18.9 - Pneumonia, unspecified organism
--- NOTE | 2024-09-07 13:45 | Hospitalist Progress Note ---
Date of Service September 07, 2024 Assessment & Plan (1) Acute heart failure with mildly reduced ejection fraction (HFmrEF, 41-49%): (2) Atrial flutter by electrocardiogram: (3) CAP (community acquired pneumonia): (4) Myocardial infarction due to demand ischemia: (5) Sepsis: Plan Patient presented with possibly acute sepsis due to pneumonia and subsequent atrial flutter with RVR. Patient has completed a 5-day course of antibiotics for pneumonia, discontinue antibiotics Patient underwent KAVITA cardioversion yesterday, doing well on metoprolol, losartan Discontinue heparin, start Eliquis Coordinate patient getting medications for discharge since he is from out of town and will be flying back to [place]. Patient reports he has a PCP office visit on Thursday morning. Communication with cardiology team, agree with current medical plan Communication with case management to help assist patient getting medications for travel. Anticipate discharge tomorrow Admission and Anticipated Discharge Date Admission Date: September 02, 2024 Subjective Patient states he feels great. "I have my life back." Physical Exam Physical Exam: Constitutional: Alert, nontoxic HEENT: Mucous membranes moist. Lungs: Clear to auscultation, decreased, no wheezes rales or rhonchi CV: S1-S2, regular Abdomen: Soft, nontender, nondistended Extremities: No significant edema Neuro: No focal deficits Psych: Cooperative, normal mood Results & Data Results & Data Vital Signs (Past 12 Hours) Vital Signs Temp Pulse Pulse Resp BP Pulse Ox O2 Del Method 09/07/24 10:40 36.3 C L 70 16 114/72 95 Room Air 09/07/24 07:59 72 09/07/24 07:43 76 17 113/75 92 Room Air 09/07/24 03:56 36.5 C 80 18 110/72 91 Room Air Diagnostic Findings Reviewed imaging, laboratory and diagnostic studies. Pertinent findings as below. Reviewed KAVITA cardioversion, ejection fraction 45% (3) CAP (community acquired pneumonia) Laterality: right Lung location: lower lobe of lung Qualified Code(s): J18.9 - Pneumonia, unspecified organism (5) Sepsis Sepsis type: sepsis due to unspecified organism Sepsis acute organ dysfunction status: unspecified Qualified Code(s): A41.9 - Sepsis, unspecified organism
[2024-09-07] MEDS ORDERED: APIXABAN 5 MG TABLET PO SCH (16:45)
[2024-09-07] MEDS ORDERED: METOPROLOL SUCC 25MG EXT REL TAB PO SCH (17:00)
[2024-09-07] MEDS ORDERED: LOSARTAN POTASSIUM 25 MG TAB PO SCH (17:00)
[2024-09-07] MEDS: APIXABAN 5 MG TABLET PO SCH (21:22)
[2024-09-08 07:08] LABS: BUN Creatinine Ratio 16.5 (10-20); Calcium 9.1 mg/dl (8.6-10.3); Creatinine Clr Calc Pharmacy 98.3 ml/min; Potassium 4.4 mmol/L (3.5-5.1)
--- NOTE | 2024-09-08 07:16 | Electrocardiogram Report ---
Test Reason : Blood Pressure : */* mmHG Vent. Rate : 75 BPM Atrial Rate : 75 BPM P-R Int : 218 ms QRS Dur : 114 ms QT Int : 394 ms P-R-T Axes : 59 -56 38 degrees QTcB Int : 439 ms Sinus rhythm with 1st degree A-V block Right bundle branch block Left anterior fascicular block Bifascicular block Abnormal ECG When compared with ECG of 05-Sep-2024 05:51, Sinus rhythm has replaced Atrial flutter Confirmed by Ghulam Fermin ([id number]) on 09/08/2024 7:16:11 AM Referred By: REFERRED SELF Confirmed By: Ghulam Fermin
[2024-09-08 07:37] VITALS: RESP 16; TEMP 97.9
--- NOTE | 2024-09-08 09:31 | Discharge Summary ---
Discharge Summary Date of Service September 08, 2024 Principal Dx & Hospital Course #1 = Principal Diagnosis (1) Acute heart failure with mildly reduced ejection fraction (HFmrEF, 41-49%): (2) Atrial flutter by electrocardiogram: (3) CAP (community acquired pneumonia): (4) Myocardial infarction due to demand ischemia: (5) Sepsis: Plan Patient presented to the emergency room with complaints of cough and chest pressure. In the emergency room is concerned today community-acquired pneumonia, elevated troponin and new findings of atrial flutter on EKG. Patient was admitted to the hospital. He was treated with antibiotics for a suspected pneumonia. Cardiology consultation was obtained. He started on beta-blockers and anticoagulation for the atrial flutter. Through the course of the patient's hospitalization his symptoms related to his pneumonia resolved and he completed a full course of antibiotics here in the hospital. Cardiology proceed with echocardiogram, showed slightly decreased ejection fraction. Attempted to control rates with medications. Ultimately determined that would be candidate for cardioversion. Patient underwent KAVITA cardioversion on 09/06/2024. He was maintained on beta-osvaldo and started on oral anticoagulation. Case management was involved since he is from out of town and did not have any local providers or pharmacy. We able to provide him with a few days of his medications as well as a coupon for the Eliquis. Patient has coordinated a visit with his PCP in his hometown tomorrow to get additional prescriptions. Since cardioversion and the patient has been feeling well. Vital signs stable. No chest pain no shortness of breath. Understands his need for urgent follow-up with his PCP. Notes For Next Care Provider Will maintain anticoagulation with Eliquis Recommend cardiology consultation for further ischemic eval as an outpatient Medication Changes From Visit Metoprolol, losartan, Eliquis added to his medical regimen Admission HPI Per Admitting Provider 69-year-old male with no medical history at current institution, sees doctors in [place], medical history of rheumatoid arthritis hyperlipidemia and hypertension, who presents for cough and some pressure in the chest. He states the pressure in the chest began 3 weeks ago. He is a lift truck mechanic. Cough began 3 days ago. He only takes methotrexate at home along with some over the counter supplements. He states this is never happened before. 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 Endorses poor diet. Does state he has some shortness of breath, pressure in chest, but denies other symptoms. Denies tobacco use, drug use, alcohol use. Former tobacco user. Admission Exam Per Admitting Provider See H&P Discharge Exam Constitutional: Alert HEENT: Mucous membranes moist. Lungs: Clear to auscultation, decreased, no wheezes rales or rhonchi CV: S1-S2, regular Abdomen: Soft, nontender, nondistended Extremities: No significant edema Neuro: No focal deficits Psych: Cooperative, normal mood Updated Medication List Medication Instructions Recorded Confirmed Type atorvastatin 40 mg tablet 40 mg PO PM 09/02/24 09/02/24 History folic acid 1 mg tablet 1 mg PO DAILY 09/02/24 09/02/24 History methotrexate sodium 2.5 mg tablet 15 mg PO WK 09/02/24 09/02/24 History apixaban 5 mg tablet (Eliquis) 5 mg PO BID #60 tabs 09/07/24 Rx aspirin 81 mg tablet,delayed 81 mg PO QAM #360 tabs 09/07/24 Rx release losartan 25 mg tablet 12.5 mg (1/2 x 25 mg) PO QAM #30 09/07/24 Rx tabs metoprolol succinate 25 mg 25 mg PO BID #60 tabs 09/07/24 Rx tablet,extended release 24 hr Hospital Stay Data Consultations 09/02/24 12:49 ED Decision to Admit Stat 09/02/24 13:50 Consult Cardiology Routine Procedures Performed Operation Date: 09/06/24 13:00 Actual Procedures p Echo Color Flow - Sung Kim, s Echo Doppler Complete - Sung Kim DO s Transesophageal Echo - Sung Kim DO p Cardioversion w/Anesthesia Sedation - Sung Kim DO Diagnostic Imagining Performed 09/02/24 21:15 CT head/brain wo con Urgent Reviewed imaging, laboratory and diagnostic studies. Pertinent findings as below. Electrolytes all within normal range Creatinine 0.85 KAVITA showed ejection fraction 40 to 45% no evidence of thrombus, no evidence of pulmonary hypertension. Refer you to full report for details Transthoracic echocardiogram showed similar findings, however suggestive of some mild to moderate pulmonary pretension at 52 mmHg. Pending Results Patient Have Any Pending Studies at Discharge: No Discharge Instructions Given to Patient (Per Discharging Provider) Follow-up with your PCP as soon as you get home. Discussed with your PCP cardiology referral/consultation in your hometown Total Time Total Time Spent Total Time Spent (In Minutes): 36
[2024-09-08 11:29] VITALS: O2SAT 93
[2024-09-08 13:28] VITALS: BP 112/66; PULSE 76
== END 2024-09-08 15:14 | disposition home or self-care (01) | DRG 871 ==
LOC: ED 11:04 → SUATTDRO 13:08 → 2E 13:08